=== PATIENT | male | born 1950 | race Caucasian/White ===

== ENCOUNTER 2016-06-18 04:45 | Inpatient (IN) | payer OTHER ==
[2016-06-18 05:07] VITALS: BMI 39.4
--- NOTE | 2016-06-18 06:58 | PDOC ---
History of Present Illness - General Chief Complaint: Tremors Stated Complaint: FALL Time Seen by Provider: 06/18/16 06:04 History Source: Patient, EMS Exam Limitations: No Limitations - History of Present Illness Initial Comments: 06/18/16 06:41 Patient is a [id number] with history of obesity, chronic back pain, VT, angioplasty, PPM/defib,A. fib, V. tach, CHF, IDDM, left knee orthoroscopy, bone grafts left hip, cholecystectomy, on CPAP at nights, complaining of tremors since 10:00 yesterday morning. States that he s took 2 Tylenol. Shaking went away after coughing up with 3 blankets in bed. After a few hours symptoms came back and since then he's been having hot and cold chills. This a.m. he was in bed and slipped off the edge. EMS was called. Temp at home was 99.3. States has had shaking like this before when he has an infection in his gallbadder. Denies abdominal pain, cough,chest pain, shortness of breath, PMD: Dr Erica Gomes Cardio: Dr. Brown PMHX: as above PSochx: neg cig, neg etoh, neg drug ALL: PCN. GENERAL/CONSTITUTIONAL: (+) fever or chills. No weakness. (+) weight gain.] HEAD, EYES, EARS, NOSE AND THROAT: [No change in vision. No ear pain or discharge. No sore throat.] CARDIOVASCULAR: [No chest pain (+) shortness of breath.] RESPIRATORY: [No cough, wheezing, or hemoptysis.] GASTROINTESTINAL: [No nausea, vomiting, diarrhea or constipation. No rectal bleeding.] GENITOURINARY: [No dysuria, frequency, or change in urination.] MUSCULOSKELETAL: [No joint or muscle swelling or pain. No neck or back pain.] SKIN AND BREASTS: [No rash or easy bruising.] NEUROLOGIC: [No headache, vertigo, loss of consciousness, or loss of sensation.] PSYCHIATRIC: [No depression or anxiety.] ENDOCRINE: [No increased thirst. No abnormal weight change.] HEMATOLOGIC/LYMPHATIC: [No anemia, easy bleeding, or history of blood clots.] ALLERGIC/IMMUNOLOGIC: [No hives or skin allergy. No latex allergy.] GENERAL: [The patient is awake, alert, and fully oriented, in mild distress.] HEAD: [Normal with no signs of trauma.] EYES: [Pupils equal, round and reactive to light, extraocular movements intact, sclera anicteric, conjunctiva clear.] ENT: [Ears normal, nares patent, oropharynx clear without exudates. Moist mucous membranes.] NECK: [Normal range of motion, supple without lymphadenopathy, JVD, or masses.] LUNGS: [Breath sounds equal, clear to auscultation bilaterally. No wheezes, and no crackles.] HEART: [Regular rate and rhythm, normal S1 and S2 without murmur, rub.] ABDOMEN: [Soft, nontender, normoactive bowel sounds. No guarding, no rebound. No masses, obese.] EXTREMITIES: [Normal range of motion, no edema. No clubbing or cyanosis. No cords, erythema, or tenderness.] NEUROLOGICAL: [Cranial nerves II through XII grossly intact. Normal speech, normal gait.] PSYCH: [Normal mood, normal affect.] SKIN: [Warm, Dry, normal turgor, no rashes or lesions noted.] Past History - Past Medical History Allergies/Adverse Reactions: Allergies Allergy/AdvReac Type Severity Reaction Status Date / Time Penicillins Allergy Verified 06/18/16 04:58 Home Medications: Ambulatory Orders Alprazolam [Xanax] 2 mg PO BID 09/12/12 Aspirin Coated [Ecotrin -] 81 mg PO DAILY 09/12/12 Atorvastatin Ca [Lipitor] 20 mg PO HS 09/12/12 Lisinopril [Prinivil] 10 mg PO DAILY 09/12/12 Metoprolol Succinate [Toprol XL -] 50 mg PO BID 09/12/12 Fenofibrate 134 mg PO DAILY 08/14/13 Metformin HCl [Glucophage -] 500 mg PO BID 08/14/13 Clopidogrel Bisulfate [Plavix -] 75 mg PO DAILY 10/06/15 Digoxin [Lanoxin -] 0.25 mg PO DAILY 10/06/15 Insulin (Levemir) [Levemir Vial] 36 unit SQ HS 10/06/15 Isosorbide Mononitrate [Imdur -] 30 mg PO DAILY 10/06/15 Metoprolol Succinate [Toprol XL -] 150 mg PO BID 10/06/15 Oxycodone HCl/Acetaminophen [Percocet 10-325 mg Tablet] 1 each PO BID PRN Repaglinide 2 mg PO TID 10/06/15 Rivaroxaban [Xarelto -] 20 mg PO HS 10/06/15 Levofloxacin [Levaquin] 500 mg PO DAILY #7 tablet 11/02/15 Anemia: No Asthma: No Cancer: No Cardiac Disorders: Yes (Stent/VT) CVA: No COPD: (bipap, oxygen dep) CHF: Yes Dementia: No Diabetes: Yes GI Disorders: No Disorders: No HTN: Yes Hypercholesterolemia: Yes Liver Disease: No Seizures: No Thyroid Disease: No - Surgical History Abdominal Surgery: No Appendectomy: No Cardiac Surgery: Yes Cholecystectomy: No Lung Surgery: No Neurologic Surgery: No Orthopedic Surgery: Yes (L Hip/Tibia(bone graft)) - Psycho/Social/Smoking Cessation Hx Anxiety: No Suicidal Ideation: No Smoking History: Former smoker Have you smoked in the past 12 months: No Number of Cigarettes Smoked Daily: 30 If you are a former smoker, when did you quit?: Information on smoking cessation initiated: No 'Breaking Loose' booklet given: 09/13/12 Hx Alcohol Use: No Drug/Substance Use Hx: No Substance Use Type: Alcohol, Marijuana Hx Substance Use Treatment: No *Physical Exam - Vital Signs Last Vital Signs Temp Pulse Resp BP Pulse Ox 98.2 F 94 H 16 111/80 94 L 06/18/16 04:58 06/18/16 04:58 06/18/16 04:58 06/18/16 04:58 06/18/16 04:58 ED Treatment Course - LABORATORY CBC & Chemistry Diagram: 06/18/16 07:00 06/18/16 07:00 Medical Decision Making - Medical Decision Making 06/18/16 06:58 Patient is a [id number] with history of obesity, chronic back pain, VT, angioplasty, PPM/defib,A. fib, V. tach, CHF, IDDM, left knee orthoroscopy, bone grafts left hip, cholecystectomy, on CPAP at nights, complaining of tremors since 10:00 yesterday morning. r/o fever, sepsis, will get labs, cxr, rectal temp will hold fluids for now. Endorsed to AM team pending labs and disposition *DC/Admit/Observation/Transfer Diagnosis at time of Disposition: Tremor
[2016-06-18 07:40] LABS: BASOPHIL 0.2 % (0-2.0); EOSINOPHIL 0.1 % (0-4.5); MCH 29.1 pg (25.7-33.7); MCHC 32.8 g/dl (32.0-35.9); MEAN PLT VOLUME 9.6 fl (7.5-11.1); NEUTROPHILS 93.1 % (42.8-82.8); PLATELET COUNT 133 K/MM3 (134-434); RDW 15.8 % (11.9-15.9); WHITE BLOOD COUNT 11.9 K/mm3 (4.0-10.0)
--- NOTE | 2016-06-18 07:49 | PDOC ---
ED Treatment Course - LABORATORY CBC & Chemistry Diagram: 06/18/16 07:00 06/18/16 07:00 Progress Note - Progress Note Progress Note: I have received report from SEVERO Morales regarding this patient. Pt's initial chief complaint: tremors/chills since 10 yesterday morning Pt's work up completed prior to sign out: none Pt treatment given from prior staff: none Pt plan to be completed: Awaiting labs, CXR, EKG Dispo: Pending Medical Decision Making - Medical Decision Making A/P: 66 y/o male with multiple co-morbidities c/o tremors/chills since yesterday. The patient was initially examined by SEVERO Morales. Awaiting labs, EKG, CXR, UA. 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 He admits he's had it for 5 years. CXR IMPRESSION: No acute pathology. Placed call to Dr. Erica Handy for admission Ordered bolus of [address] Mark Reeder who suggests admission to Med/surg. He was vanc and zosyn but pt is PCN allergic so will give Vanc and levaquin Still awaiting urine Pt made aware of plan for admission and he is in agreement. Influenza A&B - negative Ordered a second bolus of 500mg of IV fluids as the patient's BP remains at 70/ 50. He informs me that yesterday he was urinating very dark urine and hasn't urinated since. He is very dry. BP remains low after 2nd bolus. Ordered 1L IV fluids *DC/Admit/Observation/Transfer Diagnosis at time of Disposition: Tremor, Lactic acidosis, Fever of unknown origin, Dehydration Acute kidney failure Qualifiers: Acute renal failure type: unspecified Qualified Code(s): N17.9 - Acute kidney failure, unspecified - Discharge Dispostion Admit: Yes - Referrals
[2016-06-18 07:53] LABS: ALBUMIN 2.8 g/dl (3.4-5.0); BILIRUBIN,TOTAL 0.8 mg/dL (0.2-1.0); CALCIUM 9.1 mg/dL (8.5-10.1); TOT PROT 6.7 g/dl (6.4-8.2)
[2016-06-18 08:59] LABS: TROPONIN I 0.05 ng/ml (0.00-0.05)
[2016-06-18] MEDS ORDERED: ACETAMINOPHEN 1000 MG/100 ML VIAL (NON FORMULARY) IVPB ONE (09:01)
[2016-06-18] MEDS ORDERED: SODIUM CHLORIDE 500 ML IV STA ×2 (09:36→10:26)
[2016-06-18] MEDS ORDERED: ACETAMINOPHEN INJECTION 100 ML IVPB ONE (09:49)
[2016-06-18] MEDS ORDERED: VANCOMYCIN 1,000 MG in DEXTROSE 5%-WATER - 250 ML IVPB ONE (10:23)
[2016-06-18] MEDS ORDERED: LEVOFLOXACIN 750 MG IVPB 150 ML IVPB ONE ×2 (10:26→11:02)
[2016-06-18] MEDS ORDERED: VANCOMYCIN 1 GRAM (PRE-DOCKED) 250 ML IVPB ONE (11:02)
[2016-06-18] MEDS ORDERED: SODIUM CHLORIDE 1,000 ML IV STA (11:59)
--- NOTE | 2016-06-18 13:13 | HP ---
Admitting History and Physical - Primary Care Physician PCP: Erica Handy - Admission Chief Complaint: chills / not feeling well History of Present Illness: Patient is a [id number] with history of obesity, chronic back pain, [place], angioplasty, PPM/defib,A. fib, V. tach, CHF, IDDM, left knee orthoroscopy, bone grafts left hip, cholecystectomy, on CPAP at nights, left buttock sacral decubitus --complaining of tremors since 10:00 yesterday morning. States that he s took 2 Tylenol. Shaking went away after coughing up with 3 blankets in bed. After a few hours symptoms came back and since then he's been having hot and cold chills. This a.m. he was in bed and slipped off the edge. EMS was called. Temp at home was 99.3. States has had shaking like this before when he has an infection in his gall[place]. Denies abdominal pain, cough,chest pain, shortness of breath, PMD: Dr Erica Gomes PSochx: neg cig, neg etoh, neg drug ALL: PCN. In er - pt is afebrile but elevated lactic acid/ increased wbcs / pt did get tylenol at home Pt given fluids in er / abx Pt also in acute renal failure pt seen by me in er events noted/ chart reviewed pt comfortable but feels weak. denies cp/ sob/ abd pain. no headche / dizziness History Source: Patient Limitations to Obtaining History: No Limitations - Past Medical History Cardiovascular: Yes: AFIB, CAD (coronary stenting 02/17 @ [facility]), CHF, HTN, Hyperlipdemia, Other (defibrillator/PPM) Pulmonary: Yes: COPD, Sleep Apnea Hepatobiliary: Yes: Cholelithiasis (cholecystitis 10/07/15 managed by perc. 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 [employer] History of Recent Travel: No Home Medications - Allergies Allergies/Adverse Reactions: Allergies Allergy/AdvReac Type Severity Reaction Status Date / Time Penicillins Allergy Verified 06/18/16 04:58 - Home Medications Home Medications: Ambulatory Orders Alprazolam [Xanax] 2 mg PO BID 09/12/12 Aspirin Coated [Ecotrin -] 81 mg PO DAILY 09/12/12 Atorvastatin Ca [Lipitor] 20 mg PO HS 09/12/12 Lisinopril [Prinivil] 10 mg PO DAILY 09/12/12 Metoprolol Succinate [Toprol XL -] 50 mg PO BID 09/12/12 Fenofibrate 134 mg PO DAILY 08/14/13 Metformin HCl [Glucophage -] 500 mg PO BID 08/14/13 Clopidogrel Bisulfate [Plavix -] 75 mg PO DAILY 10/06/15 Digoxin [Lanoxin -] 0.25 mg PO DAILY 10/06/15 Insulin (Levemir) [Levemir Vial] 36 unit SQ HS 10/06/15 Isosorbide Mononitrate [Imdur -] 30 mg PO DAILY 10/06/15 Metoprolol Succinate [Toprol XL -] 150 mg PO BID 10/06/15 Oxycodone HCl/Acetaminophen [Percocet 10-325 mg Tablet] 1 each PO BID PRN Repaglinide 2 mg PO TID 10/06/15 Rivaroxaban [Xarelto -] 20 mg PO HS 10/06/15 Levofloxacin [Levaquin] 500 mg PO DAILY #7 tablet 11/02/15 Family Disease History - Family Disease History Family Disease History: Diabetes: Brother, Sister, [place]: Father ( 71 colon cancer), Other: Mother (multiple CVA) Review of Systems - Review of Systems Constitutional: reports: Chills, Loss of Appetite, Weakness. denies: Fever Eyes: reports: No Symptoms HENT: reports: No Symptoms Neck: reports: No Symptoms Cardiovascular: reports: No Symptoms Respiratory: reports: No Symptoms Gastrointestinal: reports: No Symptoms Genitourinary: reports: No Symptoms Musculoskeletal: reports: Back Pain. denies: No Symptoms Neurological: reports: No Symptoms Psychiatric: reports: No Symptoms Physical Examination Vital Signs: Vital Signs Temperature 98.2 F 06/18/16 04:58 Pulse Rate 83 06/18/16 12:34 Respiratory Rate 20 06/18/16 12:34 Blood Pressure 112/70 06/18/16 12:34 O2 Sat by Pulse Oximetry (%) 97 06/18/16 12:34 Constitutional: Yes: No Distress, Calm Eyes: Yes: Conjunctiva Clear Neck: Yes: Supple Cardiovascular: Yes: Pulse Irregular Respiratory: Yes: CTA Bilaterally Gastrointestinal: Yes: Normal Bowel Sounds, Soft Edema: No Neurological: Yes: Alert Imaging - Results Chest X-ray: Report Reviewed EKG: Report Reviewed Problem List - Problems (2) Acute kidney failure Code(s): N17.9 - ACUTE KIDNEY FAILURE, UNSPECIFIED Qualifiers: Acute renal failure type: unspecified Qualified Code(s): N17.9 - Acute kidney failure, unspecified (3) Fever of unknown origin Code(s): R50.9 - FEVER, UNSPECIFIED (4) Lactic acidosis Code(s): E87.2 - ACIDOSIS (5) Atrial fibrillation Code(s): I48.91 - UNSPECIFIED ATRIAL FIBRILLATION Qualifiers: Atrial fibrillation type: persistent Qualified Code(s): I48.1 - Persistent atrial fibrillation (6) CAD (coronary artery disease) Code(s): I25.10 - ATHSCL HEART DISEASE OF [place] CORONARY ARTERY W/O ANG PCTRS (7) ICD (implantable cardioverter-defibrillator) in place Code(s): Z95.810 - PRESENCE OF AUTOMATIC (IMPLANTABLE) CARDIAC DEFIBRILLATOR Assessment/Plan Admit to med surg Abx Monitor lytes u/s kidneys meds reviewed D/c carmina/ metformin u/a check digoxin level Vascular eval for chronic sacral decubitus- left buttock will follow
[2016-06-18] MEDS ORDERED: DEXTROSE 5%-NORMAL SALINE 1,000 ML IV SCH (13:15)
[2016-06-18] MEDS ORDERED: oxyCODONE HCL 5 MG TABLET PO PRN (13:27)
[2016-06-18 15:27] LABS: DIGOXIN LEVEL 0.4954 ng/ml (0.8-2.0); THYROID STIMULATING HORMONE 0.54 uIU/ml (0.358-3.74)
[2016-06-18] MEDS: METOPROLOL SUCCINATE 50 MG TAB.SR.24H (FP) PO SCH ×2 (15:34→22:02)
[2016-06-18] MEDS ORDERED: REPAGLINIDE 2 MG TABLET (FP) PO SCH (17:30)
[2016-06-18] MEDS: SODIUM CHLORIDE 1,000 ML IV SCH ×2 (17:34→21:50)
[2016-06-18] MEDS: INSULIN SLIDING SCALE (NOVOLOG) 1 VIAL SQ SCH ×3 (17:35→22:25)
[2016-06-18] MEDS: REPAGLINIDE 0.5 MG TABLET (FP) PO SCH (17:36)
[2016-06-18] MEDS ORDERED: PT OWN MED DRAWER 7, Y5N ONE (17:58)
[2016-06-18 19:13] LABS: URINE APPEARANCE SLCLOUDY; URINE BILIRUBIN NEGATIVE (NEGATIVE); URINE COLOR AMBER; URINE GLUCOSE (UA) NEGATIVE (NEGATIVE); URINE KETONE NEGATIVE (NEGATIVE); URINE LEUK ESTERASE NEGATIVE (NEGATIVE); URINE NITRITE NEGATIVE (NEGATIVE); URINE UROBILINOGEN 2.0 E.U/dl E.U./dl (0.2-1.0)
[2016-06-18 19:18] LABS: URINE BLOOD 2+ (NEGATIVE); URINE PROTEIN 2+ (NEGATIVE)
[2016-06-18 19:21] LABS: URINE MUCUS RARE; URINE RBC 30 /hpf (0-3); URINE WBC 1 /hpf (3-5)
[2016-06-18] MEDS: ATORVASTATIN CA 20 MG TABLET (FP) PO SCH (22:02)
[2016-06-18] MEDS: ALPRAZolam 2 MG TABLET PO PRN (22:03)
[2016-06-18] MEDS: RIVAROXABAN 20 MG TABLET PO SCH (22:03)
[2016-06-18] MEDS: INSULIN DETEMIR 100 UNITS/ML MDV SQ SCH (22:04)
[2016-06-19] MEDS: INSULIN SLIDING SCALE (NOVOLOG) 1 VIAL SQ SCH ×4 (06:51→22:33)
[2016-06-19 07:54] LABS: MCH 29.2 pg (25.7-33.7); MCHC 32.9 g/dl (32.0-35.9); MEAN CELL VOLUME 88.8 fl (80-96); PLATELET COUNT 100 K/MM3 (134-434); RDW 16.2 % (11.9-15.9); WHITE BLOOD COUNT 5.1 K/mm3 (4.0-10.0)
[2016-06-19 08:14] LABS: ALBUMIN 2.5 g/dl (3.4-5.0); CALCIUM 8.2 mg/dL (8.5-10.1); MAGNESIUM 1.9 mg/dL (1.8-2.4)
[2016-06-19 08:21] LABS: BILIRUBIN,TOTAL 0.7 mg/dL (0.2-1.0); CREATININE 1.5 mg/dL (0.7-1.3); PHOSPHOROUS 2.5 mg/dL (2.5-4.9)
--- NOTE | 2016-06-19 08:25 | PN ---
Progress Note (short form) - Note Progress Note: Subjective Patient seen and examined. Comfortable. Feels better. Passing urine. WBC coming down. Creatinine much better. Had fever yesterday. Denies chest pain or SOB. Objective Last Vital Signs Temp Pulse Resp BP Pulse Ox 98.0 F 112 H 18 153/88 94 L 06/19/16 09:00 06/19/16 09:00 06/19/16 09:00 06/19/16 09:00 06/18/16 21:00 CBC, BMP 06/19/16 06:15 06/19/16 06:15 Laboratory Results - last 24 hr 06/18/16 06/18/16 06/18/16 12:20 14:15 14:15 WBC RBC Hgb Hct MCV MCHC RDW Plt Count MPV Neutrophils % Lymphocytes % Sodium Potassium Chloride Carbon Dioxide Anion Gap BUN Creatinine Creat Clearance w eGFR POC Glucometer Random Glucose Hemoglobin A1c % 7.4 H D Lactic Acid 2.376 H* Calcium Phosphorus Magnesium Total Bilirubin AST ALT Alkaline Phosphatase B-Natriuretic Peptide Total Protein Albumin TSH 0.54 D Urine Color Urine Appearance Urine pH Ur Specific [place] Urine Protein Urine Glucose (UA) Urine Ketones Urine Blood Urine Nitrite Urine Bilirubin Urine Urobilinogen Ur Leukocyte Esterase Urine RBC Urine WBC Urine Mucus Digoxin 0.4954 L 06/18/16 06/18/16 06/18/16 17:00 17:33 21:44 WBC RBC Hgb Hct MCV MCHC RDW Plt Count MPV Neutrophils % Lymphocytes % Sodium Potassium Chloride Carbon Dioxide Anion Gap BUN Creatinine Creat Clearance w eGFR POC Glucometer 133 112 Random Glucose Hemoglobin A1c % Lactic Acid Calcium Phosphorus Magnesium Total Bilirubin AST ALT Alkaline Phosphatase B-Natriuretic Peptide Total Protein Albumin TSH Urine Color Ke[place] Urine Appearance Slcloudy Urine pH 5.0 Ur Specific [place] 1.024 Urine Protein 2+ H Urine Glucose (UA) Negative Urine Ketones Negative Urine Blood 2+ H Urine Nitrite Negative Urine Bilirubin Negative Urine Urobilinogen 2.0 e.u/dl Ur Leukocyte Esterase Negative Urine RBC 30 Urine WBC 1 Urine Mucus Rare Digoxin 06/19/16 06/19/16 06/19/16 06:15 06:15 06:21 WBC 5.1 D RBC 4.62 Hgb 13.5 Hct 41.1 MCV 88.8 MCHC 32.9 RDW 16.2 H Plt Count 100 L D MPV 10.0 Neutrophils % Y Lymphocytes % Y Sodium 137 Potassium 4.2 Chloride 103 Carbon Dioxide 22 Anion Gap 12 BUN 27 H Creatinine 1.5 H D Creat Clearance w eGFR 46.97 POC Glucometer 97 Random Glucose 100 D Hemoglobin A1c % Lactic Acid Calcium 8.2 L Phosphorus 2.5 Magnesium 1.9 Total Bilirubin 0.7 AST 57 H D ALT 35 D Alkaline Phosphatase 34 L B-Natriuretic Peptide 2456.95 H Total Protein 6.0 L Albumin 2.5 L TSH Urine Color Urine Appearance Urine pH Ur Specific [place] Urine Protein Urine Glucose (UA) Urine Ketones Urine Blood Urine Nitrite Urine Bilirubin Urine Urobilinogen Ur Leukocyte Esterase Urine RBC Urine WBC Urine Mucus Digoxin Problem List - Problems (2) Acute kidney failure Code(s): N17.9 - ACUTE KIDNEY FAILURE, UNSPECIFIED Qualifiers: Acute renal failure type: unspecified Qualified Code(s): N17.9 - Acute kidney failure, unspecified (3) Fever of unknown origin Code(s): R50.9 - FEVER, UNSPECIFIED (4) Lactic acidosis Code(s): E87.2 - ACIDOSIS (5) Atrial fibrillation Code(s): I48.91 - UNSPECIFIED ATRIAL FIBRILLATION Qualifiers: Atrial fibrillation type: persistent Qualified Code(s): I48.1 - Persistent atrial fibrillation (6) CAD (coronary artery disease) Code(s): I25.10 - ATHSCL HEART DISEASE OF [place] CORONARY ARTERY W/O ANG PCTRS (7) ICD (implantable cardioverter-defibrillator) in place Code(s): Z95.810 - PRESENCE OF AUTOMATIC (IMPLANTABLE) CARDIAC DEFIBRILLATOR Physical Exam Constitutional: Yes: No Distress, Calm Eyes: Yes: Conjunctiva Clear Neck: Yes: Supple Cardiovascular: Yes: Pulse Irregular Respiratory: Yes: CTA Bilaterally Gastrointestinal: Yes: Normal Bowel Sounds, Soft Edema: No Neurological: Yes: Alert Assessment and Plan Continue abx. Follow up cultures. Kidney function better. Decrease fluids. Repeat UA due to hematuria. If persists will need hematology evaluation. US Kidneys Will follow. Monitor blood sugar. Documentation prepared by Carie Bhakta, acting as a lpn or medical assistant for Tl Reeder MD. <Carie Bhakta - Last Filed: 06/19/16 09:49> Problem List - Problems (2) Acute kidney failure Code(s): N17.9 - ACUTE KIDNEY FAILURE, UNSPECIFIED Qualifiers: Acute renal failure type: unspecified Qualified Code(s): N17.9 - Acute kidney failure, unspecified (3) Fever of unknown origin Code(s): R50.9 - FEVER, UNSPECIFIED (4) Lactic acidosis Code(s): E87.2 - ACIDOSIS (5) Atrial fibrillation Code(s): I48.91 - UNSPECIFIED ATRIAL FIBRILLATION Qualifiers: Atrial fibrillation type: persistent Qualified Code(s): I48.1 - Persistent atrial fibrillation (6) CAD (coronary artery disease) Code(s): I25.10 - ATHSCL HEART DISEASE OF [place] CORONARY ARTERY W/O ANG PCTRS (7) ICD (implantable cardioverter-defibrillator) in place Code(s): Z95.810 - PRESENCE OF AUTOMATIC (IMPLANTABLE) CARDIAC DEFIBRILLATOR <Tl Reeder - Last Filed: 06/19/16 08:25>
[2016-06-19] MEDS ORDERED: PT OWN MED DRAWER 7, Y5N ONE ×2 (09:55→17:54)
[2016-06-19] MEDS ORDERED: FENOFIBRATE 134 MG PO SCH (10:00)
--- NOTE | 2016-06-19 10:21 | CONSULT ---
- Consultation REQUESTING PROVIDER: General Surgery - Dr. Brody Govea CONSULT REQUEST: We have been asked to surgically evaluate this patient for left buttock wound. PCP: Tl Reeder HPI: Called to brittnee 66yo male with PMHx noted below. Admitted to [facility] with working diagnosis of sepsis. Patient c/o tremors since 10:00am yesterday morning. Tried taking Tylenol at home with intermittent relief. After a few hours symptoms came back and since then he's been having hot and cold chills. He also was febrile on on admit and leukocytosis. Patient also has chronic left buttock wound. States it's been there for the past 5 years. States at least once a month he will sit on the toilet and during the bowel movement, he will feel a "pop". Followed by drainage of blood. Stops on own. Denies and feculent material draining from wound. Since admit to hospital, patient is feeling much better. Ambulates with walker when at home. Denies CP or SOB. Denies abd pain, distension, n/v/d/c, melena, hematochezia or bowel incontinence PMHx: AFIB, CAD, CHF, HTN, Hyperlipdemia, Cholelithiasis/cystitis, fatty liver, COPD, Sleep Apnea, Renal Inusuff, Depression, Chronic low back pain, IDDM, Morbid obesity, chronic left buttock wound x5 yrs, Vfib/Vtach, CHF PSHx: Coronary stenting 02/17 @ [place]. Defibrillator/PPM, Perc cholecystostomy tube 10/07/15, AICD, Arthrosocopy HOME MEDS 3 Alprazolam [Xanax] 2 mg PO BID PRN Aspirin Coated [Ecotrin -] 81 mg PO DAILY Atorvastatin Ca [Lipitor] 20 mg PO HS Lisinopril [Prinivil] 10 mg PO DAILY Metoprolol Succinate [Toprol XL -] 50 mg PO BID Fenofibrate 134 mg PO DAILY Metformin HCl [Glucophage -] 500 mg PO BID Clopidogrel Bisulfate [Plavix -] 75 mg PO DAILY Digoxin [Lanoxin -] 0.25 mg PO DAILY Insulin (Levemir) [Levemir Vial] 36 unit SQ HS Isosorbide Mononitrate [Imdur -] 30 mg PO DAILY Oxycodone HCl/Acetaminophen 1 each PO BID PRN [Percocet 10-325 mg Tablet] Repaglinide 2 mg PO TIDCM Rivaroxaban [Xarelto -] 20 mg PO HS Allergies: PCN ROS: CONSTITUTIONAL: Absent: SEE ABOVE. diaphoresis, generalized weakness, malaise, loss of appetite, weight change CARDIOVASCULAR: Absent: SEE ABOVE. syncope, irregular heart rate, lightheadedness, peripheral edema RESPIRATORY: Absent: SEE ABOVE. wheezing, stridor, hemoptysis GASTROINTESTINAL:Absent: SEE ABOVE. GENITOURINARY: Absent: SEE ABOVE. dysuria, frequency, urgency, hesitancy, flank pain, genital pain MUSCULOSKELETAL: Absent: myalgia, arthralgia, joint swelling, back pain, neck pain SKIN: Absent: rash, itching, pallor HEMATOLOGIC/IMMUNOLOGIC: Absent: easy bleeding, easy bruising, lymphadenopathy NEUROLOGIC: Absent: SEE ABOVE. headache, paresthesias, unsteady gait, seizure, mental status changes, bladder PSYCHIATRIC: Absent: anxiety, depression, suicidal or homicidal ideation, hallucinations. PE: GENERAL: Awake, alert, and fully oriented, in no acute distress. HEAD: Normal with no signs of trauma. EYES: PERRL, sclera anicteric, conjunctiva clear. NECK: Normal ROM, supple without lymphadenopathy, JVD, or masses. LUNGS: Clear to auscultation bilat anteriorly. No wheezes, and no crackles. No accessory muscle use. HEART: Regular rate and rhythm. No murmurs ABDOMEN: Soft, NT, ND, normoactive bowel sounds, no guarding, no rebound, no masses. No organomegaly. MUSCULOSKELETAL: Normal ROM at all joints. No bony deformities or tenderness. No CVA tenderness. UPPER EXTREMITIES: 2+ pulses, warm, well-perfused. No cyanosis. Cap refill <2 seconds. No peripheral edema. LOWER EXTREMITIES: 2+ pulses, warm, well-perfused. No calf tenderness. No peripheral edema. NEUROLOGICAL: Normal speech, gait not observed. PSYCH: Cooperative. Good eye contact. Appropriate mood and affect. SKIN: Warm, dry, chronic wound with signs of wound contracture to left buttock superiorly. Erythematous skin. No induration, bogginess or drainage. Wound probed and no tract identified. Last Vital Signs Temp Pulse Resp BP Pulse Ox 98.0 F 112 H 18 153/88 94 L 06/19/16 09:00 06/19/16 09:00 06/19/16 09:00 06/19/16 09:00 06/18/16 21:00 CBC, BMP 06/19/16 06:15 06/19/16 06:15 Microbiology 06/18/16 07:00 Blood - Peripheral Venous Blood Culture - Preliminary NO GROWTH AFTER 24 HOURS, INCUBATION TO CONTINUE FOR 4 DAYS. 06/18/16 07:00 Blood - Peripheral Venous Blood Culture - Preliminary NO GROWTH AFTER 24 HOURS, INCUBATION TO CONTINUE FOR 4 DAYS. 06/18/16 10:40 Nasopharyngeal Swab Influenza Types A,B Antigen ([place]ON[place]) - Final 06/18/16 10:40 Nasopharyngeal Swab - Final Problem List - Problems (1) Perirectal cellulitis Assessment/Plan: No surgical intervention at [facility] time f/u CT to r/o fistula in ano Cont medical management at this time Surgery team to follow Above plan discussed with Dr. Govea and agrees. Code(s): K61.1 - RECTAL ABSCESS (2) Morbid obesity Assessment/Plan: Tight glycemic control Code(s): E66.01 - MORBID (SEVERE) OBESITY DUE TO EXCESS CALORIES Qualifiers: Obesity type: due to excess calories Qualified Code(s): E66.01 - Morbid (severe) obesity due to excess calories Visit type - Case Type Case Type: ED Admission - Emergency Emergency Visit: Yes ED Registration Date: 06/18/16 Care time: The patient presented to the Emergency Department on the above date and was hospitalized for further evaluation of their emergent condition. - New patient This patient is new to me today: Yes Date on this admission: 06/19/16
[2016-06-19] MEDS: REPAGLINIDE 0.5 MG TABLET (FP) PO SCH ×3 (11:34→17:36)
[2016-06-19] MEDS: ASPIRIN COATED 81 MG TABLET.EC PO SCH (11:36)
[2016-06-19] MEDS: SODIUM CHLORIDE 1,000 ML IV SCH (11:37)
[2016-06-19] MEDS: ISOSORBIDE MONONITRATE 30 MG TAB.SR.24H (FP) PO SCH (11:37)
[2016-06-19] MEDS: FENOFIBRIC ACID 135 MG CAP PO SCH (11:37)
[2016-06-19] MEDS: METOPROLOL SUCCINATE 50 MG TAB.SR.24H (FP) PO SCH (11:37)
[2016-06-19] MEDS: DIGOXIN 0.25 MG TABLET (FP) PO SCH (11:38)
[2016-06-19] MEDS: LEVOFLOXACIN 250 MG IVPB 50 ML IVPB SCH (11:39)
[2016-06-19] MEDS: CLOPIDOGREL BISULFATE 75 MG TABLET (FP) PO SCH (11:39)
--- NOTE | 2016-06-19 12:07 | EKG ---
Test Reason : Blood Pressure : / mmHG Vent. Rate : 087 BPM Atrial Rate : 096 BPM P-R Int : 000 ms QRS Dur : 116 ms QT Int : 334 ms P-R-T Axes : 000 057 -66 degrees QTc Int : 401 ms ATRIAL FIBRILLATION POSSIBLE INFERIOR INFARCT (CITED ON OR BEFORE 10-MAY-2012) ABNORMAL ECG WHEN COMPARED WITH ECG OF 28-OCT-2015 16:48, COMPARED TO EKG NO SIGNIFICANT CHANGE IS FOUND Confirmed by GREGORIO SINGER MD ([id number]) on 06/19/2016 12:07:17 PM Referred By: Confirmed By:GREGORIO SINGER MD
[2016-06-19 16:54] LABS: URINE APPEARANCE CLEAR; URINE BILIRUBIN NEGATIVE (NEGATIVE); URINE COLOR LTYELLOW; URINE GLUCOSE (UA) NEGATIVE (NEGATIVE); URINE KETONE NEGATIVE (NEGATIVE); URINE LEUK ESTERASE NEGATIVE (NEGATIVE); URINE NITRITE NEGATIVE (NEGATIVE); URINE PROTEIN NEGATIVE (NEGATIVE); URINE UROBILINOGEN 2.0 E.U/dl E.U./dl (0.2-1.0)
[2016-06-19 17:12] LABS: URINE BLOOD 2+ (NEGATIVE)
[2016-06-19] MEDS: ATORVASTATIN CA 20 MG TABLET (FP) PO SCH (22:29)
[2016-06-19] MEDS: RIVAROXABAN 20 MG TABLET PO SCH (22:31)
[2016-06-19] MEDS: ALPRAZolam 2 MG TABLET PO PRN (22:32)
[2016-06-19] MEDS: INSULIN DETEMIR 100 UNITS/ML MDV SQ SCH (22:35)
[2016-06-20] MEDS: INSULIN SLIDING SCALE (NOVOLOG) 1 VIAL SQ SCH ×4 (06:54→22:35)
[2016-06-20 07:43] LABS: MCH 29.4 pg (25.7-33.7); MEAN PLT VOLUME 9.5 fl (7.5-11.1); PLATELET COUNT 104 K/MM3 (134-434); RDW 15.8 % (11.9-15.9); WHITE BLOOD COUNT 4.4 K/mm3 (4.0-10.0)
[2016-06-20 08:12] LABS: ALBUMIN 2.5 g/dl (3.4-5.0); ALK PHOS 35 U/L (45-117); ANION GAP 9 (8-16); BILIRUBIN,TOTAL 0.6 mg/dL (0.2-1.0); CALCIUM 8.5 mg/dL (8.5-10.1); CO2 27 mmol/L (21-32); CREATININE 1.2 mg/dL (0.7-1.3); GLUCOSE,RANDOM 119 mg/dL (74-106); SGOT/AST 47 U/L (15-37); SGPT/ALT 34 U/L (12-78); TOT PROT 6.1 g/dl (6.4-8.2)
[2016-06-20] MEDS: SODIUM CHLORIDE 1,000 ML IV SCH ×2 (08:54→17:09)
[2016-06-20] MEDS: FENOFIBRIC ACID 135 MG CAP PO SCH (09:52)
[2016-06-20] MEDS: CLOPIDOGREL BISULFATE 75 MG TABLET (FP) PO SCH (09:52)
[2016-06-20] MEDS: ISOSORBIDE MONONITRATE 30 MG TAB.SR.24H (FP) PO SCH (09:52)
[2016-06-20] MEDS: METOPROLOL SUCCINATE 50 MG TAB.SR.24H (FP) PO SCH (09:53)
[2016-06-20] MEDS: DIGOXIN 0.25 MG TABLET (FP) PO SCH ×2 (09:53→09:56)
[2016-06-20] MEDS: LEVOFLOXACIN 250 MG IVPB 50 ML IVPB SCH (09:53)
[2016-06-20] MEDS: ASPIRIN COATED 81 MG TABLET.EC PO SCH (09:53)
[2016-06-20] MEDS: REPAGLINIDE 0.5 MG TABLET (FP) PO SCH ×3 (09:54→17:09)
--- NOTE | 2016-06-20 11:44 | PN ---
Progress Note, Physician Chief Complaint: Events noted No distress noted CT results - Current Medication List Current Medications: Active Medications Acetaminophen (Tylenol -) 650 mg PO Q4H PRN PRN Reason: FEVER OR PAIN Alprazolam (Xanax -) 1 mg PO BID PRN PRN Reason: ANXIETY Last Admin: 06/19/16 22:32 Dose: 1 mg Aspirin (Ecotrin -) 81 mg PO DAILY [facility] Last Admin: 06/20/16 09:53 Dose: 81 mg Atorvastatin Calcium (Lipitor -) 20 mg PO HS [facility] Last Admin: 06/19/16 22:29 Dose: 20 mg Clopidogrel Bisulfate (Plavix -) 75 mg PO DAILY [facility] Last Admin: 06/20/16 09:52 Dose: 75 mg Digoxin (Lanoxin -) 0.25 mg PO DAILY [facility] Last Admin: 06/20/16 09:56 Dose: 0.25 mg Fenofibric Acid (Trilipix -) 135 mg PO DAILY [facility] Last Admin: 06/20/16 09:52 Dose: 135 mg Levofloxacin (Levaquin 250 Mg Premixed Ivpb -) 50 mls @ 50 mls/hr IVPB DAILY [facility] Last Admin: 06/20/16 09:53 Dose: 50 mls/hr Sodium Chloride (Normal Saline -) 1,000 mls @ 75 mls/hr IV ASDIR [facility] Last Admin: 06/20/16 08:54 Dose: Not Given Insulin Aspart (Novolog Vial Sliding Scale -) 0 vial SQ [facility] PRN Reason: Protocol Last Admin: 06/20/16 06:54 Dose: Not Given Insulin Detemir (Levemir Vial) 36 units SQ [facility] Last Admin: 06/19/16 22:35 Dose: 36 units Isosorbide Mononitrate (Imdur -) 30 mg PO DAILY [facility] Last Admin: 06/20/16 09:52 Dose: 30 mg Metoprolol Succinate (Toprol Xl -) 50 mg PO DAILY [facility] Last Admin: 06/20/16 09:53 Dose: 50 mg Oxycodone HCl (Roxicodone -) 10 mg PO Q6H PRN PRN Reason: PAIN Repaglinide (Prandin -) 2 mg PO TIDCM [facility] Last Admin: 06/20/16 09:54 Dose: Not Given Rivaroxaban (Xarelto -) 20 mg PO [facility] Last Admin: 06/19/16 22:31 Dose: 20 mg - Objective Vital Signs: Vital Signs Temperature 98.4 F 06/20/16 09:00 Pulse Rate 110 H 06/20/16 09:56 Respiratory Rate 18 06/20/16 09:00 Blood Pressure 140/85 06/20/16 09:00 O2 Sat by Pulse Oximetry (%) 96 06/20/16 09:00 Constitutional: Yes: No Distress Cardiovascular: Yes: Pulse Irregular Respiratory: Yes: Diminished Gastrointestinal: Yes: Normal Bowel Sounds, Soft, Abdomen, Obese. No: Distention, Tenderness Edema: No Labs: CBC, BMP 06/20/16 07:05 06/20/16 07:05 Problem List - Problems (1) Acute kidney failure Code(s): N17.9 - ACUTE KIDNEY FAILURE, UNSPECIFIED Qualifiers: Acute renal failure type: unspecified Qualified Code(s): N17.9 - Acute kidney failure, unspecified (2) Chronic systolic (congestive) heart failure Code(s): I50.22 - CHRONIC SYSTOLIC (CONGESTIVE) HEART FAILURE (3) Dehydration Code(s): E86.0 - DEHYDRATION (4) Perineal abscess Code(s): L02.215 - CUTANEOUS ABSCESS OF PERINEUM Assessment/Plan PLAN -- ID evaluation for antibiotics -- pain control -- pt has h/o chronic perineal abscess draining -- surgical eval noted -- WBC decreased -- renal failure resolved -- continue with meds
--- NOTE | 2016-06-20 11:59 | PN ---
Progress Note (short form) - Note Progress Note: No acute events since admit to hospital per RN notes. Resting in position of comfort. No complaints. CT Scan images and report reviewed. Last Vital Signs Temp Pulse Resp BP Pulse Ox 98.4 F 110 H 18 140/85 96 06/20/16 09:00 06/20/16 09:56 06/20/16 09:00 06/20/16 09:00 06/20/16 09:00 CBC, BMP 06/20/16 07:05 06/20/16 07:05 Problem List - Problems (1) Perirectal cellulitis Assessment/Plan: Patient has chronic left buttock wound that was debrided 5yrs ago. Continues to drain once a month. Wond examined yesterday with Dr. Govea. No evidence of abscess/induration. On CT, it shows a solitary droplet of air and they can't r/o developing abscess. Wound is open. No drainage. No surgical intervention. Should patient decide on having this explored elective, please have patient follow-up with Dr. Govea. Continue care per primary team. Above plan discussed with Dr. Govea and agrees. Code(s): K61.1 - RECTAL ABSCESS (2) Morbid obesity Code(s): E66.01 - MORBID (SEVERE) OBESITY DUE TO EXCESS CALORIES Qualifiers: Obesity type: due to excess calories Qualified Code(s): E66.01 - Morbid (severe) obesity due to excess calories
--- NOTE | 2016-06-20 16:53 | PN ---
Progress Note (short form) - Note Progress Note: ID Consult dictated Possible early perirectal abscess/ sepsis PCN allergy Empiric levaquin/ flagyl IV --> po Outpatient colorectal surgery evaluation
[2016-06-20] MEDS: METRONIDAZOLE 500 MG PREMIXED 100 ML IVPB SCH (17:09)
--- NOTE | 2016-06-20 21:08 | CONS ---
DATE OF CONSULTATION: 06/20/2016 HISTORY: A 66-year-old male with a history of coronary artery disease, history of chronic left buttock wound, evaluated for possible perirectal abscess/sepsis. The patient was admitted to the hospital after complaints of fever and chills. He had experiencing shaking chills as well as subjective fever and profound weakness. He had slipped from the bed onto the floor without sustaining any major trauma. He was taken by ambulance to the emergency room. His course was notable for fever of 101.6. Cultures were obtained. He was empirically treated with Levaquin for possible sepsis. Patient was noted to have a left buttock wound, which has been present for some time. He reports that for at least 5 years, he has had this sinus opening in the left buttock area, which opened from time to time. He reports on occasion he has a bowel movement and feels a popping sensation followed by bloody drainage from this area. He states that while in the hospital, there was purulent fluid draining. He was seen in consultation by Surgery. The wound was probed and apparently did not probe deeply. A CT scan was performed of the pelvic area and showed a possible early abscess. PAST MEDICAL HISTORY: Positive for obesity, obstructive sleep apnea, chronic low back pain, coronary artery disease, myocardial infarction, congestive heart failure, diabetes mellitus. PAST SURGICAL HISTORY: Status post permanent pacemaker and cholecystectomy. ALLERGIES: PENICILLIN. PATIENT REPORTS HAVING AN ALLERGIC REACTION IN CHILDHOOD. HE IS UNAWARE OF THE NATURE OF THE ALLERGY. HE HAS TOLERATED AUGMENTIN SUBSEQUENT TO THAT. MEDICATIONS: Include Tylenol, Levaquin, Xarelto, Xanax, Toprol, Lanoxin, Lipitor, Levemir, Prandin, Imdur, Ecotrin, oxycodone, Plavix. SOCIAL HISTORY: Lives at home with his significant other. Positive history of tobacco use. SYSTEMS REVIEW: Neurologic: No loss of consciousness, seizure activity, or focal weakness. Cardiac: Negative chest pain or palpations. Respiratory: Negative cough or sputum production. Gastrointestinal: Negative vomiting or diarrhea. Genitourinary: Negative for urinary tract infection. LABORATORY DATA: White blood cell count 4.4, hematocrit 39.7, platelet count 104, BUN 23, creatinine 1.2. Urinalysis: Negative. Blood and urine cultures negative. Flu swab negative. Previous culture results from an abscess from August 2013, positive for coagulation, negative staphylococcus, and group F streptococcus. PHYSICAL EXAMINATION: General: He is weak appearing, but not acutely toxic. Vital signs: Temperature 98.4, temperature max 101.6, blood pressure 120/63, pulse 100 and regular, respirations 16 per minute. HEENT: Sclerae are anicteric. Heart: S1, S2. Lungs: Clear. Abdomen: Obese, soft, nontender. Genitalia: Examination of the perirectal area there is an area of erythema and induration present in the left perianal area with what appears to be a sinus tract. There is no expressible pus or blood. No crepitus or fluctuance. IMPRESSION: 1. Possible early perirectal abscess. 2. Possible sepsis secondary to perirectal abscess. 3. PENICILLIN ALLERGY. PLAN: We will empirically treat with Levaquin and Flagyl IV, to be switched to p.o. over the next 24 to 48 hours if stable. Outpatient colorectal surgery evaluation. Thank you for the kind referral. KERRY ROBLES M.D. [id number]
[2016-06-20] MEDS: ATORVASTATIN CA 20 MG TABLET (FP) PO SCH (22:33)
[2016-06-20] MEDS: ALPRAZolam 2 MG TABLET PO PRN (22:34)
[2016-06-20] MEDS: RIVAROXABAN 20 MG TABLET PO SCH (22:35)
[2016-06-20] MEDS: INSULIN DETEMIR 100 UNITS/ML MDV SQ SCH (22:35)
[2016-06-21] MEDS: METRONIDAZOLE 500 MG PREMIXED 100 ML IVPB SCH ×3 (01:50→17:21)
[2016-06-21] MEDS: INSULIN SLIDING SCALE (NOVOLOG) 1 VIAL SQ SCH ×4 (07:09→22:06)
[2016-06-21] MEDS: REPAGLINIDE 0.5 MG TABLET (FP) PO SCH ×3 (08:09→17:30)
[2016-06-21] MEDS ORDERED: PT OWN MED DRAWER 7, Y5N ONE (10:03)
[2016-06-21] MEDS: ISOSORBIDE MONONITRATE 30 MG TAB.SR.24H (FP) PO SCH (10:07)
[2016-06-21] MEDS: METOPROLOL SUCCINATE 50 MG TAB.SR.24H (FP) PO SCH (10:08)
[2016-06-21] MEDS: CLOPIDOGREL BISULFATE 75 MG TABLET (FP) PO SCH (10:08)
[2016-06-21] MEDS: ALPRAZolam 2 MG TABLET PO PRN (10:08)
[2016-06-21] MEDS: ASPIRIN COATED 81 MG TABLET.EC PO SCH (10:08)
[2016-06-21] MEDS: FENOFIBRIC ACID 135 MG CAP PO SCH (10:08)
[2016-06-21] MEDS: DIGOXIN 0.25 MG TABLET (FP) PO SCH (10:09)
[2016-06-21] MEDS: LEVOFLOXACIN 750 MG IVPB 150 ML IVPB SCH (11:28)
[2016-06-21] MEDS ORDERED: ALPRAZolam 0.25 MG TABLET PO PRN (15:26)
[2016-06-21] MEDS: ACETAMINOPHEN 325 MG TABLET (FP) PO PRN (17:21)
[2016-06-21] MEDS: SODIUM CHLORIDE 1,000 ML IV SCH (17:22)
--- NOTE | 2016-06-21 17:40 | PN ---
Progress Note (short form) - Note Progress Note: patient seen and examined Family at bedside Patient reports had anxiety attack yesterday--wants me to renew Xanax Denies chest pain Breathing is stable Overall looks better Vital Signs Temp 97.7 F 06/21/16 16:25 Pulse 100 H 06/21/16 16:25 Resp 22 06/21/16 16:25 BP 144/81 06/21/16 16:25 Pulse Ox 97 06/21/16 09:00 Intake & Output 06/20/16 06/21/16 06/21/16 23:59 11:59 23:59 Intake Total 2000 600 300 Output Total 1800 650 400 Balance 200 -50 -100 Weight 284 lb 6 oz Intake: IV 900 Normal Saline - 1,000 ml 900 @ 75 mls/hr IV ASDIR [facility] Rx#:[id number] IVPB 250 Oral 1100 350 300 Output: Urine 1800 650 400 Void 1800 650 400 Other: Voiding Method Toilet Toilet Bowel Movement Yes Yes Weight Measurement Method Built in [facility] Active Medications Acetaminophen (Tylenol -) 650 mg PO Q4H PRN PRN Reason: FEVER OR PAIN Last Admin: 06/21/16 17:21 Dose: 650 mg Alprazolam (Xanax -) 1 mg PO BID PRN PRN Reason: ANXIETY Aspirin (Ecotrin -) 81 mg PO DAILY [facility] Last Admin: 06/21/16 10:08 Dose: 81 mg Atorvastatin Calcium (Lipitor -) 20 mg PO HS [facility] Last Admin: 06/20/16 22:33 Dose: 20 mg Clopidogrel Bisulfate (Plavix -) 75 mg PO DAILY [facility] Last Admin: 06/21/16 10:08 Dose: 75 mg Digoxin (Lanoxin -) 0.25 mg PO DAILY [facility] Last Admin: 06/21/16 10:09 Dose: 0.25 mg Fenofibric Acid (Trilipix -) 135 mg PO DAILY [facility] Last Admin: 06/21/16 10:08 Dose: 135 mg Levofloxacin (Levaquin 750 Mg Premixed Ivpb -) 150 mls @ 150 mls/hr IVPB DAILY [facility] Last Admin: 06/21/16 11:28 Dose: 150 mls/hr Metronidazole (Flagyl 500mg Premixed Ivpb -) 100 mls @ 100 mls/hr IVPB Q8H-IV [facility] Last Admin: 06/21/16 17:21 Dose: 100 mls/hr Insulin Aspart (Novolog Vial Sliding Scale -) 0 vial SQ [facility] PRN Reason: Protocol Last Admin: 06/21/16 17:22 Dose: Not Given Insulin Detemir (Levemir Vial) [address] [facility] Last Admin: 06/20/16 22:35 Dose: 36 units Isosorbide Mononitrate (Imdur -) 30 mg PO DAILY [facility] Last Admin: 06/21/16 10:07 Dose: 30 mg Metoprolol Succinate (Toprol Xl -) 50 mg PO DAILY [facility] Last Admin: 06/21/16 10:08 Dose: 50 mg Repaglinide (Prandin -) 2 mg PO TIDCM [facility] Last Admin: 06/21/16 17:30 Dose: 2 mg Rivaroxaban (Xarelto -) 20 mg PO HS [facility] Last Admin: 06/20/16 22:35 Dose: 20 mg CBC, BMP 06/20/16 07:05 06/20/16 07:05 Microbiology 06/18/16 10:40 Respiratory Virus Panel - Preliminary Nasopharyngeal Swab 06/18/16 07:00 Blood Culture - Preliminary Blood - Peripheral Venous NO GROWTH OBTAINED AFTER 72 HOURS, INCUBATION TO CONTINUE FOR 2 DAYS. 06/18/16 07:00 Blood Culture - Preliminary Blood - Peripheral Venous NO GROWTH OBTAINED AFTER 72 HOURS, INCUBATION TO CONTINUE FOR 2 DAYS. physical exam Constitutional: Yes: No Distress Cardiovascular: Yes: Pulse Irregular Respiratory: Yes: Diminished Gastrointestinal: Yes: Normal Bowel Sounds, Soft, Abdomen, Obese. No: Distention, Tenderness Edema: No Assessment/Plan ---antibiotics -- ID evaluation noted -- pain control -- pt has h/o chronic perineal abscess draining -- surgical eval noted and discussed with Dr. Govea today --- No surgery planned ---- renal failure resolved -- continue with meds ==Will follow Problem List - Problems (2) Acute kidney failure Code(s): N17.9 - ACUTE KIDNEY FAILURE, UNSPECIFIED Qualifiers: Acute renal failure type: unspecified Qualified Code(s): N17.9 - Acute kidney failure, unspecified (3) Fever of unknown origin Code(s): R50.9 - FEVER, UNSPECIFIED (4) Lactic acidosis Code(s): E87.2 - ACIDOSIS (5) Atrial fibrillation Code(s): I48.91 - UNSPECIFIED ATRIAL FIBRILLATION Qualifiers: Atrial fibrillation type: persistent Qualified Code(s): I48.1 - Persistent atrial fibrillation (6) CAD (coronary artery disease) Code(s): I25.10 - ATHSCL HEART DISEASE OF [place] CORONARY ARTERY W/O ANG PCTRS (7) ICD (implantable cardioverter-defibrillator) in place Code(s): Z95.810 - PRESENCE OF AUTOMATIC (IMPLANTABLE) CARDIAC DEFIBRILLATOR
[2016-06-21] MEDS: INSULIN DETEMIR 100 UNITS/ML MDV SQ SCH (22:05)
[2016-06-21] MEDS: ATORVASTATIN CA 20 MG TABLET (FP) PO SCH (22:06)
[2016-06-21] MEDS: RIVAROXABAN 20 MG TABLET PO SCH (22:06)
[2016-06-22] MEDS: METRONIDAZOLE 500 MG PREMIXED 100 ML IVPB SCH ×2 (01:35→09:41)
[2016-06-22] MEDS: ACETAMINOPHEN 325 MG TABLET (FP) PO PRN (06:34)
[2016-06-22] MEDS: INSULIN SLIDING SCALE (NOVOLOG) 1 VIAL SQ SCH ×2 (06:35→12:14)
[2016-06-22] MEDS ORDERED: PT OWN MED DRAWER 7, Y5N ONE (09:39)
[2016-06-22] MEDS: CLOPIDOGREL BISULFATE 75 MG TABLET (FP) PO SCH (09:40)
[2016-06-22] MEDS: ISOSORBIDE MONONITRATE 30 MG TAB.SR.24H (FP) PO SCH (09:40)
[2016-06-22] MEDS: METOPROLOL SUCCINATE 50 MG TAB.SR.24H (FP) PO SCH (09:40)
[2016-06-22] MEDS: ASPIRIN COATED 81 MG TABLET.EC PO SCH (09:40)
[2016-06-22] MEDS: FENOFIBRIC ACID 135 MG CAP PO SCH (09:40)
[2016-06-22] MEDS: REPAGLINIDE 0.5 MG TABLET (FP) PO SCH ×2 (09:41→11:00)
[2016-06-22 09:42] VITALS: PULSE 96
[2016-06-22] MEDS: DIGOXIN 0.25 MG TABLET (FP) PO SCH (09:42)
[2016-06-22] MEDS: LEVOFLOXACIN 750 MG IVPB 150 ML IVPB SCH (10:40)
--- NOTE | 2016-06-22 10:55 | DS ---
Physical Examination Vital Signs: Vital Signs Temperature 97.0 F L 06/22/16 06:00 Pulse Rate 96 H 06/22/16 09:42 Respiratory Rate 20 06/22/16 06:00 Blood Pressure 138/72 06/22/16 06:00 O2 Sat by Pulse Oximetry (%) 97 06/21/16 21:00 Constitutional: Yes: No Distress, Calm Cardiovascular: Yes: Pulse Irregular Respiratory: Yes: Diminished Gastrointestinal: Yes: Normal Bowel Sounds, Soft, Abdomen, Obese. No: Distention, Tenderness Edema: No Labs: CBC, BMP 06/20/16 07:05 06/20/16 07:05 Discharge Summary Reason For Visit: FEVER OF UNKNOWN ORGIN, SEPSIS, LACTIC ACIDOSIS Current Active Problems Acute kidney failure (Acute) Cellulitis, abdominal wall (Acute) Cholecystitis without cholelithiasis (Acute) Chronic systolic (congestive) heart failure (Acute) Dehydration (Acute) Fever of unknown origin (Acute) Lactic acidosis (Acute) Perineal abscess (Acute) Perirectal cellulitis (Acute) Tremor (Acute) Hospital Course: ER HISTORY - Admission Chief Complaint: chills / not feeling well History of Present Illness: Patient is a [id number] with history of obesity, chronic back pain, RI, angioplasty, PPM/defib,A. fib, V. tach, CHF, IDDM, left knee orthoroscopy, bone grafts left hip, cholecystectomy, on CPAP at nights, left buttock sacral decubitus --complaining of tremors since 10:00 yesterday morning. States that he s took 2 Tylenol. Shaking went away after coughing up with 3 blankets in bed. After a few hours symptoms came back and since then he's been having hot and cold chills. This a.m. he was in bed and slipped off the edge. EMS was called. Temp at home was 99.3. States has had shaking like this before when he has an infection in his gallbadder. Denies abdominal pain, cough,chest pain, shortness of breath, PMD: Dr Erica Gomes PSochx: neg cig, neg etoh, neg drug ALL: PCN. 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-- CT pelvis shows small abscess-- seen by Surgeon and ID- no surgical intervention at this time as the wound is continuously draining Renal function better and WBC decreased on IV antibiotics Stable for dc home-- he will be on PO antibiotics Condition: Good - Instructions Referrals: Brody Govea MD [Staff Physician] - Erica Handy MD [Primary Care Provider] - 2 Weeks Disposition: HOME - Home Medications Comprehensive Discharge Medication List: Ambulatory Orders Alprazolam [Xanax] 2 mg PO BID PRN 09/12/12 Aspirin Coated [Ecotrin -] 81 mg PO DAILY 09/12/12 Atorvastatin Ca [Lipitor] 20 mg PO HS 09/12/12 Lisinopril [Prinivil] 10 mg PO DAILY 09/12/12 Metoprolol Succinate [Toprol XL -] 50 mg PO BID 09/12/12 Fenofibrate 134 mg PO DAILY 08/14/13 Metformin HCl [Glucophage -] 500 mg PO BID 08/14/13 Clopidogrel Bisulfate [Plavix -] 75 mg PO DAILY 10/06/15 Digoxin [Lanoxin -] 0.25 mg PO DAILY 10/06/15 Insulin (Levemir) [Levemir Vial] 36 unit SQ HS 10/06/15 Isosorbide Mononitrate [Imdur -] 30 mg PO DAILY 10/06/15 Oxycodone HCl/Acetaminophen [Percocet 10-325 mg Tablet] 1 each PO BID PRN Repaglinide 2 mg PO TIDCM 10/06/15 Rivaroxaban [Xarelto -] 20 mg PO HS 10/06/15
[2016-06-22 11:57] VITALS: BP 140/84; TEMP 98.1
== END 2016-06-22 15:10 | disposition home or self-care (01) | DRG 872 ==
LOC: JER 04:45 → JERBED 10:24 → J8W 13:43
PROVIDERS: ADMIT Internal Medicine; ATTEND Internal Medicine
DX: A41.9 Sepsis, unspecified organism (principal); N17.9 Acute kidney failure, unspecified; E87.2 Acidosis; I50.22 Chronic systolic (congestive) heart failure; Z68.41 Body mass index [BMI] 40.0-44.9, adult; L02.215 Cutaneous abscess of perineum; I48.1 Persistent atrial fibrillation; K61.1 Rectal abscess; I25.10 Atherosclerotic heart disease of native coronary artery without angina pectoris; I25.2 Old myocardial infarction; E11.9 Type 2 diabetes mellitus without complications; E78.5 Hyperlipidemia, unspecified; J44.9 Chronic obstructive pulmonary disease, unspecified; E66.01 Morbid (severe) obesity due to excess calories; Z71.3 Dietary counseling and surveillance; I11.0 Hypertensive heart disease with heart failure; G47.39 Other sleep apnea; M54.5 Low back pain; K76.0 Fatty (change of) liver, not elsewhere classified; E86.0 Dehydration; F32.89 Other specified depressive episodes; L89.321 Pressure ulcer of left buttock, stage 1; Z79.4 Long term (current) use of insulin; Z95.810 Presence of automatic (implantable) cardiac defibrillator; Z87.891 Personal history of nicotine dependence; Z95.5 Presence of coronary angioplasty implant and graft; Z88.0 Allergy status to penicillin
CPT/HCPCS: 36415; 71020-TC; 72192-TC; 76775-TC; 80053; 80162; 81003; 81015; 82550; 82553; 83036; 83605; 83735; 83880; 84100; 84443; 84484; 85025; 87040; 87086; 87254; 87804; 93005; 93010; 97116-GP; 97161-GP; 99284-25

== ENCOUNTER 2018-05-21 03:38 | Inpatient (IN) | payer OTHER ==
--- NOTE | 2018-05-21 04:02 | PDOC ---
History of Present Illness - General Chief Complaint: Respiratory Stated Complaint: RESPIRATORY PROBLEM Time Seen by Provider: 05/21/18 03:51 History Source: Patient - History of Present Illness Initial Comments: 05/21/18 04:21 68 year old male c/o increased work of breathing for the last 3 days with b/l eye drainage. patient reports that he uses a cpap at night unable to tolerate due to persistent wheezing. Patient has past medical history OK, A. fib on xarelto, CHF, V. tach, hypertension, IDDM, pacemaker/defibrillator, herniated disks, DJD, peripheral neuropathy,. Past History - Past Medical History Allergies/Adverse Reactions: Allergies Allergy/AdvReac Type Severity Reaction Status Date / Time Penicillins Allergy Verified 05/21/18 04:08 Home Medications: Ambulatory Orders Alprazolam [Xanax] 2 mg PO BID PRN 09/12/12 Aspirin Coated [Ecotrin -] 81 mg PO DAILY 09/12/12 Atorvastatin Ca [Lipitor] 20 mg PO HS 09/12/12 Lisinopril [Prinivil] 10 mg PO DAILY 09/12/12 Fenofibrate 134 mg PO DAILY 08/14/13 metFORMIN HCL [Glucophage -] 500 mg PO BID 08/14/13 Clopidogrel Bisulfate [Plavix -] 75 mg PO DAILY 10/06/15 Insulin (Levemir) [Levemir Vial] 36 unit SQ HS 10/06/15 Isosorbide Mononitrate [Imdur -] 30 mg PO DAILY 10/06/15 Oxycodone HCl/Acetaminophen [Percocet 10-325 mg Tablet] 1 each PO BID PRN Repaglinide 2 mg PO TIDCM 10/06/15 Rivaroxaban [Xarelto -] 20 mg PO HS 10/06/15 Metoprolol Succinate [Toprol XL -] 150 mg PO DAILY 90 Days tab.sr.24h 06/22/16 Carvedilol [Coreg -] 50 mg PO BID 05/21/18 Anemia: No Asthma: No Cancer: No Cardiac Disorders: Yes (Stent/OK) CVA: No COPD: (bipap, oxygen dep) CHF: Yes Dementia: No Diabetes: Yes HTN: Yes Hypercholesterolemia: Yes Seizures: No Thyroid Disease: No - Surgical History Cardiac Surgery: Yes Orthopedic Surgery: Yes (L Hip/Tibia(bone graft)) - Suicide/Smoking/Psychosocial Hx Smoking History: Former smoker Have you smoked in the past 12 months: No Number of Cigarettes Smoked Daily: 30 If you are a former smoker, when did you quit?: 'Breaking Loose' booklet given: 09/13/12 Hx Alcohol Use: No Drug/Substance Use Hx: No Substance Use Type: Alcohol, Marijuana Hx Substance Use Treatment: No Review of Systems - Review of Systems Able to Perform ROS?: Yes Is the patient limited Slovak proficient: No HEENTM: Yes: Other (b/l eye discharge) Respiratory: Yes: Shortness of Breath, Wheezing Cardiac (ROS): No: Symptoms Reported, See HPI, Chest Pain, Edema, Irregular Heart Rate, Lightheadedness, Palpitations, Syncope, Chest Tightness, Other ABD/GI: No: Symptoms Reported, See HPI, Abdominal Distended, Abd. Pain w/ defecation, Blood Streaked Bowels, Constipated, Diarrhea, Difficulty Swallowing , Nausea, Poor Appetite, Poor Fluid Intake, Rectal Bleeding, Vomiting, Indigestion, Abdominal cramping, Tarry Stools, Other *Physical Exam - Vital Signs 05/21/18 04:33 Last Vital Signs Temp Pulse Resp BP Pulse Ox 98.8 F 84 23 H 100/51 L 98 05/21/18 03:38 05/21/18 03:38 05/21/18 03:38 05/21/18 03:38 05/21/18 03:38 - Physical Exam General Appearance: Yes: Moderate Distress HEENT: positive: Other (both eyes matted) Respiratory/Chest: positive: Decreased Breath Sounds, Wheezing Gastrointestinal/Abdominal: positive: Normal Bowel Sounds, Soft Extremity: positive: Normal Capillary Refill, Normal Inspection, Normal Range of Motion Integumentary: positive: Dry, Warm Neurologic: positive: Fully Oriented, Alert Heart Score/ECG Review - History History: Moderately suspicious - Electrocardiogram EKG: Normal - Age Age: >/= 65 - Risk Factors Risk Factors Heart Score: Yes Hx Hypercholesterolemia, Yes Hx Hypertension, Yes Hx Diabetes, Yes Hx Obesity Based on the list above the patient has:: >/=3 risk factors or Hx atherosclerotic disease - Troponin Troponin: </= normal limit - Score Heart Score - Total: 5 - ECG Intrepretation Rhythm: Regular Rhythm ED Treatment Course - LABORATORY CBC & Chemistry Diagram: 05/23/18 05:30 05/23/18 05:30 Progress Note - Progress Note Progress Note: CHF exacerbation P: Labs chest xray: congestion EKG: Afib 74 bpm Medical Decision Making - Medical Decision Making 05/21/18 06:04 patient b/p 109/51. bipap pending. patient signed out to Dr. bunn. accepted for admission *DC/Admit/Observation/Transfer Diagnosis at time of Disposition: Acute CHF Qualifiers: Heart failure type: unspecified Qualified Code(s): I50.9 - Heart failure, unspecified - Discharge Dispostion Condition at time of disposition: Fair Decision to Admit order: Yes - Referrals - Patient Instructions - Post Discharge Activity
[2018-05-21] MEDS ORDERED: ALBUTEROL SO4 2.5/IPRATROPIUM 0.5 INH SOL 3 ML VIAL.NEB. NEB ONE (04:04)
[2018-05-21] MEDS ORDERED: LEVALBUTEROL HCL 0.63 MG/3 ML VIAL.NEB. IH PRN (04:12)
[2018-05-21] MEDS ORDERED: LEVALBUTEROL HCL 0.63 MG/3 ML VIAL.NEB. IH ONE (04:15)
[2018-05-21] MEDS ORDERED: methylPREDNISolone NA SUCC 125 MG/2 ML VIAL IVPB ONE (04:17)
[2018-05-21] MEDS ORDERED: IPRATROPIUM BR 0.02% 0.5 MG/2.5 ML VIAL.NEB. NEB PRN (04:18)
--- NOTE | 2018-05-21 04:18 | PDOC ---
Attending Attestation - HPI HPI: 05/21/18 04:11 68-year-old male complaining of increasing shortness of breath and wheezing getting worse throughout the day. - Physicial Exam PE: 05/21/18 04:13 GENERAL: Awake, in moderate distress secondary to acute dyspnea HEAD: No signs of trauma EYES: ENT:clear without exudates. Moist mucosa NECK: Normal ROM, LUNGS:. Increased work of breathing with expiratory wheezing bilaterally and diminished air entry HEART: Irregularly irregular ABDOMEN: Soft, nondistended CHEST WALL: BACK: No midline tenderness. EXTREMITIES:. No erythema, or tenderness NEUROLOGICAL: Alert, SKIN: Warm, Dry 05/21/18 04:14
--- NOTE | 2018-05-21 04:20 | PDOC ---
*Physical Exam - Vital Signs Last Vital Signs Temp Pulse Resp BP Pulse Ox 98.8 F 84 23 H 100/51 L 98 05/21/18 03:38 05/21/18 03:38 05/21/18 03:38 05/21/18 03:38 05/21/18 03:38 ED Treatment Course - LABORATORY CBC & Chemistry Diagram: 05/21/18 04:50 05/21/18 04:50 Medical Decision Making - Critical Care Time Total Critical Care Time (minutes): 35 Critical Care Statement: The care of this patient involved high complexity decision making to prevent further life threatening deterioration of the patient 's condition and/or to evaluate & treat vital organ system(s) failure or risk of failure. - Medical Decision Making 05/21/18 04:20 68-year-old male with shortness of breath. Patient presents with respiratory distress and increased work of breathing. Nebulizer treatments and steroids as well as cardiac monitoring initiated. Patient seen by the advanced practice provider under my direct supervision. Ancillary testing reviewed as necessary. I agree with plan as outlined by the advanced practice provider. 05/21/18 06:05 . *DC/Admit/Observation/Transfer Diagnosis at time of Disposition: Acute CHF - Discharge Dispostion Condition at time of disposition: Fair - Referrals - Patient Instructions - Post Discharge Activity
[2018-05-21] MEDS ORDERED: methylPREDNISolone NA SUCC 125 MG/2 ML VIAL ONE (04:47)
[2018-05-21 04:59] LABS: EOS % 2.7 % (0-4.5); HEMATOCRIT 35.2 % (35.4-49); HEMOGLOBIN 10.9 GM/dL (11.7-16.9); LYMPH % 10.2 % (8-40); MCH 28.3 pg (25.7-33.7); MCHC 30.9 g/dl (32.0-35.9); MEAN CELL VOLUME 91.5 fl (80-96); MEAN PLT VOLUME 9.8 fl (7.5-11.1); MONO % 14.6 % (3.8-10.2); NEUT % 71.5 % (42.8-82.8); PLATELET COUNT 116 K/MM3 (134-434); RBC 3.85 M/mm3 (4.00-5.60); RDW 17.3 % (11.9-15.9); WHITE BLOOD COUNT 2.9 K/mm3 (4.0-10.0)
[2018-05-21 05:10] LABS: INR 1.79 (0.83-1.09); PROTHROMBIN TIME (PATIENT) 21.3 SEC (9.7-13.0)
[2018-05-21 05:15] LABS: ARTERIAL BLOOD GAS BASE EXCESS 1.1 meq/l (-2-2); ARTERIAL BLOOD GAS pH 7.35 (7.35-7.45); CARBOXYHEMOGLOBIN 1.1 gm% (0.5-2.0)
[2018-05-21 05:22] LABS: ALBUMIN 2.4 g/dl (3.4-5.0); ALK PHOS 47 U/L (45-117); ANION GAP 5 MMOL/L (8-16); BILIRUBIN,TOTAL 0.9 mg/dL (0.2-1); BLOOD UREA NITROGEN 32 mg/dL (7-18); CALCIUM 8.3 mg/dL (8.5-10.1); CHLORIDE 105 mmol/L (98-107); CO2 30 mmol/L (21-32); CREATININE 1.3 mg/dL (0.55-1.3); GLUCOSE,RANDOM 165 mg/dL (74-106); MAGNESIUM 2.4 mg/dL (1.8-2.4); POTASSIUM 4.5 mmol/L (3.5-5.1); SGOT/AST 40 U/L (15-37); SGPT/ALT 25 U/L (13-61); SODIUM 139 mmol/L (136-145); TOT PROT 7.2 g/dl (6.4-8.2)
[2018-05-21 05:27] LABS: ALLENS TEST POSITIVE
[2018-05-21] MEDS ORDERED: FUROSEMIDE 40 MG/4 ML INJECTABLE VIAL IVPUSH ONE ×2 (05:42→05:59)
--- NOTE | 2018-05-21 06:04 | HP ---
CHIEF COMPLAINT: shortness of breath PCP: Erica Gomes HISTORY OF PRESENT ILLNESS: 68yo man with mult medical problems listed below, with severe heart failure with systolic dysfunction c/o worsening shortness of breath for the past 3 days and very intolerance to exercise. Unable to exert himself. Denied any chest pain. Sleeps on one pillow. Follows with Dr. Kurtz for cardiology care. Reported that last year his ICD discharged after he developed Vtach. [employer] structure [employer] and [employer]- [facility] ER course was notable for: (1) Bipap (2) IV furosemide (3) Recent Travel: none PAST MEDICAL HISTORY:obesity, chronic back pain, 2014: moderate multivessel disease by coronary angiogram; had PCI (BRIAN) of mid RCA; PPM/defib,A. fib, V. tach, CHF, IDDM, TSERING on CPAPA, COPD? PAST SURGICAL HISTORY:left knee orthoroscopy, bone grafts left hip, cholecystectomy, rectal abscess -2016 Social History: Smoking: quit smoking may 2011 Alcohol: no Drugs: no Family History: Diabetes: Brother, Sister, CA: Father ( 71 colon cancer), Other: Mother (multiple CVA) Allergies Penicillins Allergy (Verified 05/21/18 04:08) HOME MEDICATIONS: Home Medications Medication Instructions Recorded Alprazolam [Xanax] 2 mg PO BID PRN 09/12/12 Aspirin Coated [Ecotrin -] 81 mg PO DAILY 09/12/12 Atorvastatin Ca [Lipitor] 20 mg PO HS 09/12/12 Lisinopril [Prinivil] 10 mg PO DAILY 09/12/12 Fenofibrate 134 mg PO DAILY 08/14/13 metFORMIN HCL [Glucophage -] 500 mg PO BID 08/14/13 Clopidogrel Bisulfate [Plavix -] 75 mg PO DAILY 10/06/15 Digoxin [Lanoxin -] 0.25 mg PO DAILY 10/06/15 Insulin (Levemir) [Levemir Vial] 36 unit SQ HS 10/06/15 Isosorbide Mononitrate [Imdur -] 30 mg PO DAILY 10/06/15 Oxycodone HCl/Acetaminophen 1 each PO BID PRN 10/06/15 [Percocet 10-325 mg Tablet] Repaglinide 2 mg PO TIDCM 10/06/15 Rivaroxaban [Xarelto -] 20 mg PO HS 10/06/15 Levofloxacin [Levaquin] 500 mg PO DAILY #5 tablet 06/22/16 Metoprolol Succinate [Toprol XL -] 150 mg PO DAILY 90 Days tab.sr.24h 06/22/16 metroNIDAZOLE [Flagyl -] 500 mg PO TID #15 tablet 06/22/16 REVIEW OF SYSTEMS CONSTITUTIONAL: Absent: fever, chills, diaphoresis, malaise, loss of appetite, weight change present- generalized weakness, obese HEENT: Absent: rhinorrhea, nasal congestion, throat pain, throat swelling, difficulty swallowing, mouth swelling, ear pain, eye pain, visual changes present- eye discharge CARDIOVASCULAR: Absent: chest pain, syncope, palpitations, lightheadedness, present- irregular heart rate, peripheral edema RESPIRATORY: Absent: cough, wheezing, stridor, hemoptysis present- shortness of breath, dyspnea with exertion, orthopnea, GASTROINTESTINAL: Absent: abdominal pain, abdominal distension, nausea, vomiting, diarrhea, constipation, melena, hematochezia GENITOURINARY: Absent: dysuria, frequency, urgency, hesitancy, hematuria, flank pain, genital pain MUSCULOSKELETAL: Absent: myalgia, arthralgia, joint swelling, back pain, neck pain SKIN: Absent: rash, itching, pallor HEMATOLOGIC/IMMUNOLOGIC: Absent: easy bleeding, easy bruising, lymphadenopathy, frequent infections ENDOCRINE: Absent: unexplained weight gain, unexplained weight loss, heat intolerance, cold intolerance NEUROLOGIC: Absent: headache, focal weakness or paresthesias, dizziness, unsteady gait, seizure, mental status changes, bladder or bowel incontinence PSYCHIATRIC: Absent: anxiety, depression, suicidal or homicidal ideation, hallucinations. PHYSICAL EXAMINATION Vital Signs - 24 hr 05/21/18 03:38 Temperature 98.8 F Pulse Rate 84 Respiratory 23 H Rate Blood Pressure 100/51 L O2 Sat by Pulse 98 Oximetry (%) GENERAL: Awake, alert, and fully oriented, in mild resp distress HEAD: Normal with no signs of trauma. EYES: Pupils equal, round and reactive to light, dried purulent d/c from eyes b/ l EARS, NOSE, THROAT: Ears normal, nares patent, oropharynx clear without exudates. Moist mucous membranes. NECK: Normal range of motion, supple without lymphadenopathy, JVD, or masses. LUNGS: Breath sounds equal, + crackles b/l, coarse breath sounds, in bipap HEART: Regular rate and rhythm, normal S1 and S2 without murmur, rub or gallop. ABDOMEN: Soft, nontender, obese, bs+, MUSCULOSKELETAL: Normal range of motion at all joints. No bony deformities or tenderness. No CVA tenderness. UPPER EXTREMITIES: 2+ pulses, warm, well-perfused. No cyanosis. No clubbing. No peripheral edema. LOWER EXTREMITIES: 1+ pedal edema b/l NEUROLOGICAL: Cranial nerves II-XII intact. Normal speech PSYCHIATRIC: Cooperative. Good eye contact. Appropriate mood and affect. SKIN: Warm, dry, normal turgor, no rashes or lesions noted, normal capillary refill. Laboratory Results - last 24 hr 05/21/18 05/21/18 05/21/18 04:50 04:50 04:50 WBC 2.9 L RBC 3.85 L Hgb 10.9 L Hct 35.2 L D MCV 91.5 MCH 28.3 MCHC 30.9 L RDW 17.3 H Plt Count 116 L D MPV 9.8 Absolute Neuts (auto) 2.1 Neutrophils % 71.5 Lymphocytes % 10.2 D Monocytes % 14.6 H Eosinophils % 2.7 Basophils % 1.0 D Nucleated RBC % 0 PT with INR 21.30 H INR 1.79 H Puncture Site ABG pH ABG pCO2 at Pt Temp ABG pO2 at Pt Temp ABG HCO3 ABG O2 Sat (Measured) ABG O2 Content ABG Base Excess Buzz Test Carboxyhemoglobin Methemoglobin O2 Delivery Device Oxygen Flow Rate Sodium 139 Potassium 4.5 Chloride 105 Carbon Dioxide 30 Anion Gap 5 L BUN 32 H Creatinine 1.3 Creat Clearance w eGFR 55.06 Random Glucose 165 H Lactic Acid Calcium 8.3 L Magnesium 2.4 Total Bilirubin 0.9 AST 40 H ALT 25 Alkaline Phosphatase 47 Creatine Kinase 50 Troponin I < 0.02 B-Natriuretic Peptide 2448.0 H Total Protein 7.2 Albumin 2.4 L Influenza A (Rapid) Influenza B (Rapid) 05/21/18 05/21/18 05/21/18 04:50 05:00 05:31 WBC RBC Hgb Hct MCV MCH MCHC RDW Plt Count MPV Absolute Neuts (auto) Neutrophils % Lymphocytes % Monocytes % Eosinophils % Basophils % Nucleated RBC % PT with INR INR Puncture Site Left radial ABG pH 7.35 ABG pCO2 at Pt Temp 49.0 H ABG pO2 at Pt Temp 196.0 H* ABG HCO3 26.5 H ABG O2 Sat (Measured) 99.0 H ABG O2 Content 13.2 L ABG Base Excess 1.1 Buzz Test Positive Carboxyhemoglobin 1.1 Methemoglobin 0.6 O2 Delivery Device Aerosol mask Oxygen Flow Rate 6l Sodium Potassium Chloride Carbon Dioxide Anion Gap BUN Creatinine Creat Clearance w eGFR Random Glucose Lactic Acid 1.1 Calcium Magnesium Total Bilirubin AST ALT Alkaline Phosphatase Creatine Kinase Troponin I B-Natriuretic Peptide Total Protein Albumin Influenza A (Rapid) Negative Influenza B (Rapid) Negative CXR - reviewed- pulm edema, ICD in place ekg reviewed- afib, old inferior infarct, no acute ischemic changes noted ASSESSMENT/PLAN: #CHF exacerbation - acute on chronic systolic #Afib- rate controlled #Hx CAD- grossly abnormal ekg s/p PCI of right RCA #Leukopenia - uncertain etiology #IDDM - uncontrolled #HYpotension- lactate wnl, do not suspect hypoperfusion at this time #Obesity -admit to telemetry -trend troponin -low dose lasix given hypotension -c/w Bipap -hold all antihypertensives at this time -c/w digoxin, check level -cardiology consult -c/w ASA and plavix for CAD -c/w xarelto for afib -i/o -daily weights -salt restriction -1L fluid/day restriction -c/w lipitor -insulin sliding scale -home dose levimer -diabetic/low Na diet -xanax prn for anxiety dvt ppx- xarelto Visit type - Emergency Visit Emergency Visit: Yes Care time: The patient presented to the Emergency Department on the above date and was hospitalized for further evaluation of their emergent condition. - New Patient This patient is new to me today: Yes Date on this admission: 05/21/18 - Critical Care Critical Care patient: No
[2018-05-21] MEDS ORDERED: FUROSEMIDE 40 MG/4 ML INJECTABLE VIAL ONE (06:24)
[2018-05-21] MEDS: INSULIN SLIDING SCALE (NOVOLOG) 1 VIAL SQ SCH ×4 (08:00→22:28)
--- NOTE | 2018-05-21 08:14 | PN ---
Progress Note (short form) - Note Progress Note: Pt examined in ER-- on BIPAP has SOB no chest pain Vital Signs - 24 hr 05/21/18 05/21/18 05/21/18 03:38 06:15 06:32 Temperature 98.8 F Pulse Rate 84 Pulse Rate [ 88 Right] Respiratory 23 H 22 H Rate Blood Pressure 100/51 L Blood Pressure 103/54 L [Left Arm] O2 Sat by Pulse 98 99 97 Oximetry (%) 05/21/18 08:00 Temperature Pulse Rate Pulse Rate [ 77 Right] Respiratory 22 H Rate Blood Pressure Blood Pressure 119/50 L [Left Arm] O2 Sat by Pulse 99 Oximetry (%) Current Medications Generic Name Dose Route Start Last Admin Trade Name Freq PRN Reason Stop Dose Admin Alprazolam 2 mg 05/21/18 06:30 Xanax - PO BID PRN ANXIETY Aspirin 81 mg 05/21/18 10:00 Ecotrin - PO DAILY JOHN Atorvastatin Calcium 20 mg 05/21/18 22:00 Lipitor - PO HS JOHN Clopidogrel Bisulfate 75 mg 05/21/18 10:00 Plavix - PO DAILY JOHN Digoxin 0.25 mg 05/21/18 10:00 Lanoxin - PO DAILY JOHN Insulin Aspart 1 vial 05/21/18 07:00 05/21/18 08:00 Novolog Vial Sliding Scale - SQ 4 units ACHS JOHN Administration Protocol Insulin Detemir 36 units 05/21/18 22:00 Levemir Vial SQ HS JOHN Ipratropium [place] 1 amp 05/21/18 04:18 05/21/18 06:32 Atrovent 0.02% Nebulizer - NEB 1 amp Q15M PRN Administration WHEEZING Isosorbide Mononitrate 30 mg 05/21/18 10:00 Imdur - PO DAILY JOHN Levalbuterol HCl 0.63 mg 05/21/18 04:12 Xopenex IH Q15M PRN ASTHMA Rivaroxaban 20 mg 05/21/18 22:00 Xarelto - PO HS [facility] Laboratory Results - last 24 hr 05/21/18 05/21/18 05/21/18 04:50 04:50 04:50 WBC 2.9 L RBC 3.85 L Hgb 10.9 L Hct 35.2 L D MCV 91.5 MCH 28.3 MCHC 30.9 L RDW 17.3 H Plt Count 116 L D MPV 9.8 Absolute Neuts (auto) 2.1 Neutrophils % 71.5 Lymphocytes % 10.2 D Monocytes % 14.6 H Eosinophils % 2.7 Basophils % 1.0 D Nucleated RBC % 0 PT with INR 21.30 H INR 1.79 H Puncture Site ABG pH ABG pCO2 at Pt Temp ABG pO2 at Pt Temp ABG HCO3 ABG O2 Sat (Measured) ABG O2 Content ABG Base Excess Buzz Test Carboxyhemoglobin Methemoglobin O2 Delivery Device Oxygen Flow Rate Sodium 139 Potassium 4.5 Chloride 105 Carbon Dioxide 30 Anion Gap 5 L BUN 32 H Creatinine 1.3 Creat Clearance w eGFR 55.06 POC Glucometer Random Glucose 165 H Lactic Acid Calcium 8.3 L Magnesium 2.4 Total Bilirubin 0.9 AST 40 H ALT 25 Alkaline Phosphatase 47 Creatine Kinase 50 Troponin I < 0.02 B-Natriuretic Peptide 2448.0 H Total Protein 7.2 Albumin 2.4 L Influenza A (Rapid) Influenza B (Rapid) 05/21/18 05/21/18 05/21/18 04:50 05:00 05:31 WBC RBC Hgb Hct MCV MCH MCHC RDW Plt Count MPV Absolute Neuts (auto) Neutrophils % Lymphocytes % Monocytes % Eosinophils % Basophils % Nucleated RBC % PT with INR INR Puncture Site Left radial ABG pH 7.35 ABG pCO2 at Pt Temp 49.0 H ABG pO2 at Pt Temp 196.0 H* ABG HCO3 26.5 H ABG O2 Sat (Measured) 99.0 H ABG O2 Content 13.2 L ABG Base Excess 1.1 Buzz Test Positive Carboxyhemoglobin 1.1 Methemoglobin 0.6 O2 Delivery Device Aerosol mask Oxygen Flow Rate 6l Sodium Potassium Chloride Carbon Dioxide Anion Gap BUN Creatinine Creat Clearance w eGFR POC Glucometer Random Glucose Lactic Acid 1.1 Calcium Magnesium Total Bilirubin AST ALT Alkaline Phosphatase Creatine Kinase Troponin I B-Natriuretic Peptide Total Protein Albumin Influenza A (Rapid) Negative Influenza B (Rapid) Negative 05/21/18 08:22 WBC RBC Hgb Hct MCV MCH MCHC RDW Plt Count MPV Absolute Neuts (auto) Neutrophils % Lymphocytes % Monocytes % Eosinophils % Basophils % Nucleated RBC % PT with INR INR Puncture Site ABG pH ABG pCO2 at Pt Temp ABG pO2 at Pt Temp ABG HCO3 ABG O2 Sat (Measured) ABG O2 Content ABG Base Excess Buzz Test Carboxyhemoglobin Methemoglobin O2 Delivery Device Oxygen Flow Rate Sodium Potassium Chloride Carbon Dioxide Anion Gap BUN Creatinine Creat Clearance w eGFR POC Glucometer [phone] Random Glucose Lactic Acid Calcium Magnesium Total Bilirubin AST ALT Alkaline Phosphatase Creatine Kinase Troponin I B-Natriuretic Peptide Total Protein Albumin Influenza A (Rapid) Influenza B (Rapid) S1 s2 Irregular Lungs decreased Abd- obese, NT Edema+ PLAN IV lasix BIPAP Pulmonary and cardiology eval Telemetry check i and O Problem List - Problems (1) Afib Code(s): I48.91 - UNSPECIFIED ATRIAL FIBRILLATION (2) Acute on chronic systolic (congestive) heart failure Code(s): I50.23 - ACUTE ON CHRONIC SYSTOLIC (CONGESTIVE) HEART FAILURE (3) Diabetes Code(s): E11.9 - TYPE 2 DIABETES MELLITUS WITHOUT COMPLICATIONS (4) HTN (hypertension) Code(s): I10 - ESSENTIAL (PRIMARY) HYPERTENSION (5) Hyperlipidemia Code(s): E78.5 - HYPERLIPIDEMIA, UNSPECIFIED
[2018-05-21] MEDS ORDERED: INSULIN (NOVOLOG) ASPART 100 UNITS/ML 10ML VIAL ONE ×4 (08:28→22:19)
[2018-05-21] MEDS: ASPIRIN COATED 81 MG TABLET.EC PO SCH (12:05)
[2018-05-21] MEDS: DIGOXIN 0.25 MG TABLET (FP) PO SCH ×2 (12:06→12:26)
[2018-05-21] MEDS: ISOSORBIDE MONONITRATE 30 MG TAB.SR.24H (FP) PO SCH (12:06)
[2018-05-21] MEDS: CLOPIDOGREL BISULFATE 75 MG TABLET (FP) PO SCH (12:07)
[2018-05-21 12:41] LABS: ANISOCYTOSIS 0; MACROCYTOSIS 0; PLATELET ESTIMATE DECREASED
--- NOTE | 2018-05-21 14:29 | CON.PULM ---
Consult Consult Specialty:: PULMONARY Referred by:: Dr. Handy Reason for Consultation:: shortness of breath - History of Present Illness Chief Complaint: shortness of breath History of Present Illness: 68yo male with h/o HTN, DM, atrial fibrillation, CAD s/p stent, severe LV systolic dysfunction s/p ICD who was admitted with worsening shortness of breath x 3 days. States he has been experiencing sharp stabbing pains all over chest. +nonproductive cough and wheezing. No fevers, chills or sweats. +sick contact with . Sleeps on 1 pillow and denies significant leg swelling. 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 - History Source History Provided By: Patient, Medical Record Limitations to Obtaining History: No Limitations - Past Medical History Cardio/Vascular: Yes: AFIB, [place]17 [place] [facility] [place] [facility] [place] CHF, HTN, Hyperlipdemia, Other (defibrillator/PPM) Pulmonary: Yes: COPD, Sleep Apnea Hepatobiliary: Yes: Cholelithiasis (cholecystitis 10/07/15 managed by perc. cholecystostomy), Other (fatty liver) Renal/: Yes: Renal Inusuff Psych: Yes: Depression Musculoskeletal: Yes: Chronic low back pain Endocrine: Yes: Diabetes Mellitus, Other (Morbid obesity ) - Past Surgical History Past Surgical History: Yes: AICD, Arthrosocopy, Permanent Pacemaker - Alcohol/Substance Use Hx Alcohol Use: No History of Substance Use: reports: None - Smoking History Smoking history: Former smoker Have you smoked in the past 12 months: No Aproximately how many cigarettes per day: 30 If you are a former smoker, when did you quit?: - Social History Usual Living Arrangement: With Spouse ADL: Family Assistance 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 [employer] History of Recent Travel: No Home Medications - Allergies Allergies/Adverse Reactions: Allergies Allergy/AdvReac Type Severity Reaction Status Date / Time Penicillins Allergy Verified 05/21/18 04:08 - Home Medications Home Medications: Ambulatory Orders Alprazolam [Xanax] 2 mg PO BID PRN 09/12/12 Aspirin Coated [Ecotrin -] 81 mg PO DAILY 09/12/12 Atorvastatin Ca [Lipitor] 20 mg PO HS 09/12/12 Lisinopril [Prinivil] 10 mg PO DAILY 09/12/12 Fenofibrate 134 mg PO DAILY 08/14/13 metFORMIN HCL [Glucophage -] 500 mg PO BID 08/14/13 Clopidogrel Bisulfate [Plavix -] 75 mg PO DAILY 10/06/15 Digoxin [Lanoxin -] 0.25 mg PO DAILY 10/06/15 Insulin (Levemir) [Levemir Vial] 36 unit SQ HS 10/06/15 Isosorbide Mononitrate [Imdur -] 30 mg PO DAILY 10/06/15 Oxycodone HCl/Acetaminophen [Percocet 10-325 mg Tablet] 1 each PO BID PRN Repaglinide 2 mg PO TIDCM 10/06/15 Rivaroxaban [Xarelto -] 20 mg PO HS 10/06/15 Metoprolol Succinate [Toprol XL -] 150 mg PO DAILY 90 Days tab.sr.24h 06/22/16 Family Disease History - Family Disease History Family Disease History: Diabetes: Brother, Sister, CA: Father ( 71 colon cancer), Other: Mother (multiple CVA) Review of Systems - Review of Systems Constitutional: reports: Weakness. denies: Chills, Fever Eyes: denies: Recent Change in Vision HENT: denies: Nasal Congestion, Throat Pain Neck: denies: Stiffness, Tenderness Cardiovascular: reports: Chest Pain, Shortness of Breath. denies: Edema, Palpitations Respiratory: reports: Cough, Wheezing. denies: Hemoptysis Gastrointestinal: denies: Abdominal Pain, Nausea, Vomiting Genitourinary: denies: Dysuria, Hematuria Neurological: denies: Dizziness, Headache Endocrine: denies: Unexplained Weight Loss Physical Exam Vital Sings: Vital Signs Temperature 98.8 F 05/21/18 03:38 Pulse Rate 77 05/21/18 08:00 Respiratory Rate 22 H 05/21/18 08:00 Blood Pressure 119/50 L 05/21/18 08:00 O2 Sat by Pulse Oximetry (%) 100 05/21/18 11:00 Constitutional: Yes: Calm Eyes: Yes: Conjunctiva Clear, EOM Intact HENT: Yes: Atraumatic, Normocephalic Neck: Yes: Supple, Trachea Midline Cardiovascular: Yes: Pulse Irregular Respiratory: Yes: Diminished (decreased breath sounds at the bases) ...Clubbing: No Gastrointestinal: Yes: Normal Bowel Sounds, Soft. No: Tenderness Edema: Yes (trace) Labs: CBC, BMP 05/21/18 04:50 05/21/18 04:50 ABG Results ABG pH 7.35 (7.35-7.45) 05/21/18 05:00 ABG pCO2 at Pt Temp 49.0 mmHg (35-45) H 05/21/18 05:00 ABG pO2 at Pt Temp 196.0 mmHg (80-100) H* 05/21/18 05:00 ABG HCO3 26.5 meq/L (22-26) H 05/21/18 05:00 ABG O2 Sat (Measured) 99.0 % (90-98.9) H 05/21/18 05:00 ABG O2 Content 13.2 % vol (15-22) L 05/21/18 05:00 ABG Base Excess 1.1 meq/l (-2-2) 05/21/18 05:00 Imaging - Results Chest X-ray: Report Reviewed, Image Reviewed (cardiomegaly, mild pulmonary vascular congestion) Problem List - Problems (1) Acute on chronic systolic (congestive) heart failure Code(s): I50.23 - ACUTE ON CHRONIC SYSTOLIC (CONGESTIVE) HEART FAILURE (2) Atrial fibrillation Code(s): I48.91 - UNSPECIFIED ATRIAL FIBRILLATION Qualifiers: Atrial fibrillation type: persistent Qualified Code(s): I48.1 - Persistent atrial fibrillation (3) CAD (coronary artery disease) Code(s): I25.10 - ATHSCL HEART DISEASE OF [place] CORONARY ARTERY W/O ANG PCTRS (4) ICD (implantable cardioverter-defibrillator) in place Code(s): Z95.810 - PRESENCE OF AUTOMATIC (IMPLANTABLE) CARDIAC DEFIBRILLATOR (5) Morbid obesity Code(s): E66.01 - MORBID (SEVERE) OBESITY DUE TO EXCESS CALORIES Assessment/Plan Acute on Chronic Systolic Heart Failure Atrial Fibrillation s/p PPM/ICD CAD HTN DM Hyperlipidemia r/o COPD r/o TSERING - IV lasix - monitor urine output, creatinine - daily weights - echocardiogram - consider ICD interrogation - rate control - continue anticoagulation - O2 to keep SpO2 >90% - BiPAP as needed to assist in work of breathing - inhaled bronchodilators - will need outpt PFTs, PSG Thank you for this consult Les Garcia MD
--- NOTE | 2018-05-21 16:30 | ECHO ---
Name: LORA KIMBALL Exam:Adult Echocardiogram Study Date: 05/21/2018 11:45 AM Age: 68 yrs Reason For Study: CHF Height: 71 in Weight: 270 lb BSA: 2.4 m2 MMode/2D Measurements & Calculations IVSd: 1.3 cm Ao root diam: 2.9 cm LVIDd: 5.3 cm LA dimension: 4.5 cm LVIDs: 3.7 cm LVPWd: 1.1 cm EDV(Teich): 135.7 ml LVOT diam: 2.0 cm ESV(Teich): 58.0 ml LAV (MOD-bp): 83.2 ml Doppler Measurements & Calculations MV E max mae: 120.0 cm/sec AI P1/2t: 681.8 msec MV dec time: 0.17 sec AI max mae: 120.8 cm/sec MR max mae: 389.0 cm/sec AI max P.8 mmHg MR max P.5 mmHg AI dec slope: 51.9 cm/sec2 TR max mae: 289.1 cm/sec Med Peak E' Mae: 5.0 cm/sec TR max P.5 mmHg Med E/e': 24.0 RVSP(TR): 38.5 mmHg Lat Peak E' Mae: 8.6 cm/sec Lat E/e': 14.0 RAP systole: 5.0 mmHg PI Vmax: 108.6 cm/sec Left Ventricle Normal LV size with mildly reduced global function. Ejection Fraction = 47%. Left Ventricular Filling pattern is normal for age. Right Ventricle Normal RV size and function. A pacemaker wire is seen in the RV. Atria Mild LA enlargement. Right atrial size is normal. Mitral Valve The mitral valve is grossly normal. There is trace mitral regurgitation. Tricuspid Valve The tricuspid valve is not well visualized, but is grossly normal. There is trace tricuspid regurgita tion. Aortic Valve Thickened aortic valve without stenosis. Pulmonic Valve The pulmonic valve leaflets are thin and pliable; valve motion is normal. Great Vessels The aortic root is normal size. Interpretation Summary Normal LV size with mildly reduced global function. Ejection Fraction = 47%. Left Ventricular Filling pattern is normal for age. Normal RV size and function. A pacemaker wire is seen in the RV. Mild LA enlargement Right atrial size is normal. The mitral valve is grossly normal. There is trace mitral regurgitation. The tricuspid valve is not well visualized, but is grossly normal. There is trace tricuspid regurgitation. Thickened aortic valve without stenosis. The aortic root is normal size. MD Yony Thomason 05/21/2018 04:29 PM
--- NOTE | 2018-05-21 18:11 | EKG ---
Test Reason : Blood Pressure : / mmHG Vent. Rate : 074 BPM Atrial Rate : 086 BPM P-R Int : 000 ms QRS Dur : 124 ms QT Int : 402 ms P-R-T Axes : 000 060 248 degrees QTc Int : 446 ms ATRIAL FIBRILLATION POSSIBLE INFERIOR INFARCT (CITED ON OR BEFORE 10-MAY-2012) ABNORMAL ECG Confirmed by MD VERNON, MADISON ([id number]) on 05/21/2018 6:11:21 PM Referred By: Confirmed By:MADISON JUNIOR MD
[2018-05-21] MEDS ORDERED: RIVAROXABAN 20 MG TABLET PO SCH (22:00)
[2018-05-21] MEDS ORDERED: INSULIN (LEVEMIR) 100 UNITS/ML UNITS SQ ONE (22:19)
[2018-05-21] MEDS: INSULIN (LEVEMIR) 100 UNITS/ML UNITS SQ SCH (22:27)
[2018-05-21] MEDS: RIVAROXABAN 20 MG TABLET PO SCH (22:27)
[2018-05-21] MEDS: ATORVASTATIN CA 20 MG TABLET (FP) PO SCH (22:28)
--- NOTE | 2018-05-22 01:14 | CON.CARD ---
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 Denies chest pain or leg swelling. Former long-term cigarettes (quit in ?2015). Pt believes he was shocked at least once by the defibrillator. - History Source History Provided By: Patient, Medical Record Limitations to Obtaining History: No Limitations - Past Medical History LICENSE ISSUER: Yes: Peripheral Neuropathy Cardio/Vascular: Yes: AFIB, [place] [facility] [place], HTN, Hyperlipdemia, Other (defibrillator/PPM) Pulmonary: Yes: COPD, Sleep Apnea Hepatobiliary: Yes: Cholelithiasis (cholecystitis 10/07/15 managed by perc. cholecystostomy), Other (fatty liver) Renal/: Yes: Renal Inusuff Psych: Yes: Depression Musculoskeletal: Yes: Chronic low back pain Endocrine: Yes: Diabetes Mellitus, Other (Morbid obesity ) - Past Surgical History Past Surgical History: Yes: AICD, Arthrosocopy, Permanent Pacemaker - Alcohol/Substance Use Hx Alcohol Use: No History of Substance Use: reports: None - Smoking History Smoking history: Former smoker Have you smoked in the past 12 months: No Aproximately how many cigarettes per day: 30 If you are a former smoker, when did you quit?: - Social History Usual Living Arrangement: With Spouse ADL: Family Assistance 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 [employer] History of Recent Travel: No Home Medications - Allergies Allergies/Adverse Reactions: Allergies Allergy/AdvReac Type Severity Reaction Status Date / Time Penicillins Allergy Verified 05/21/18 04:08 - Home Medications Home Medications: Ambulatory Orders Alprazolam [Xanax] 2 mg PO BID PRN 09/12/12 Aspirin Coated [Ecotrin -] 81 mg PO DAILY 09/12/12 Atorvastatin Ca [Lipitor] 20 mg PO HS 09/12/12 Lisinopril [Prinivil] 10 mg PO DAILY 09/12/12 Fenofibrate 134 mg PO DAILY 08/14/13 metFORMIN HCL [Glucophage -] 500 mg PO BID 08/14/13 Clopidogrel Bisulfate [Plavix -] 75 mg PO DAILY 10/06/15 Insulin (Levemir) [Levemir Vial] 36 unit SQ HS 10/06/15 Isosorbide Mononitrate [Imdur -] 30 mg PO DAILY 10/06/15 Oxycodone HCl/Acetaminophen [Percocet 10-325 mg Tablet] 1 each PO BID PRN Repaglinide 2 mg PO TIDCM 10/06/15 Rivaroxaban [Xarelto -] 20 mg PO HS 10/06/15 Metoprolol Succinate [Toprol XL -] 150 mg PO DAILY 90 Days tab.sr.24h 06/22/16 Carvedilol [Coreg -] 50 mg PO BID 05/21/18 Family Disease History - Family Disease History Family Disease History: Diabetes: Brother, Sister, [place]: Father ( 71 colon cancer), Other: Mother (multiple CVA) Review of Systems - Review of Systems Constitutional: reports: Weakness Eyes: reports: No Symptoms HENT: reports: No Symptoms Neck: reports: No Symptoms Cardiovascular: reports: Shortness of Breath Respiratory: reports: Exercise Intolerance, SOB Gastrointestinal: reports: Nausea Genitourinary: reports: No Symptoms Breasts: reports: No Symptoms Reported Musculoskeletal: reports: Muscle Weakness Integumentary: reports: No Symptoms Neurological: reports: Unsteady Gait, Weakness Endocrine: reports: No Symptoms Psychiatric: reports: Anxiety, Depression - Risk Factors Known Risk Factors: Yes: Age, Diabetes Mellitus, Gender, Hypercholesterolemia, Hypertension, Physical Inactivity, Smoking (former), Other (sedentary; sleep apnea) Vital Signs: Vital Signs Temperature 98.2 F 05/21/18 14:00 Pulse Rate 82 05/21/18 14:00 Respiratory Rate 20 05/21/18 14:00 Blood Pressure 94/57 L 05/21/18 14:00 O2 Sat by Pulse Oximetry (%) 98 05/22/18 01:11 Abnormal Lab Results 05/21/18 05/21/18 05/21/18 04:50 04:50 04:50 WBC 2.9 L RBC 3.85 L Hgb 10.9 L Hct 35.2 L D MCHC 30.9 L RDW 17.3 H Plt Count 116 L D Monocytes % 14.6 H Monocytes % (Manual) 13 H PT with INR 21.30 H INR 1.79 H ABG pCO2 at Pt Temp ABG pO2 at Pt Temp ABG HCO3 ABG O2 Sat (Measured) ABG O2 Content Anion Gap 5 L BUN 32 H Random Glucose 165 H Calcium 8.3 L AST 40 H B-Natriuretic Peptide 2448.0 H Albumin 2.4 L 05/21/18 05:00 WBC RBC Hgb Hct MCHC RDW Plt Count Monocytes % Monocytes % (Manual) PT with INR INR ABG pCO2 at Pt Temp 49.0 H ABG pO2 at Pt Temp 196.0 H* ABG HCO3 26.5 H ABG O2 Sat (Measured) 99.0 H ABG O2 Content 13.2 L Anion Gap BUN Random Glucose Calcium AST B-Natriuretic Peptide Albumin Constitutional: Yes: Anxious, Obese Eyes: Yes: WNL HENT: Yes: WNL Neck: Yes: WNL Respiratory: Yes: On BiPap, SOB, Tachypnea Gastrointestinal: Yes: Soft, Abdomen, Obese Renal/: No: Anuria JVD: No Carotid Bruit: No PMI: Displaced Heart Sounds: Yes: S1 (varies in intensity), S2 Murmur: Yes: Systolic Murmur, Grade 1 Musculoskeletal: Yes: Back Pain, Joint Stiffness, Muscle Weakness Extremities: Yes: Cool Edema: Yes Edema: LLE: Trace, RLE: Trace Peripheral Pulses WNL: Yes Integumentary: Yes: WNL Psychiatric: Yes: Alert, Oriented - Other Data Labs, Other Data: CBC, BMP 05/21/18 04:50 05/21/18 04:50 INR, PTT INR 1.79 (0.83-1.09) H 05/21/18 04:50 Troponin, BNP 05/21/18 04:50 Troponin I < 0.02 B-Natriuretic Peptide 2448.0 H Troponin, BNP 05/21/18 04:50 Troponin I < 0.02 B-Natriuretic Peptide 2448.0 H Abnormal Lab Results 05/21/18 05/21/18 05/21/18 04:50 04:50 04:50 WBC 2.9 L RBC 3.85 L Hgb 10.9 L Hct 35.2 L D MCHC 30.9 L RDW 17.3 H Plt Count 116 L D Monocytes % 14.6 H Monocytes % (Manual) 13 H PT with INR 21.30 H INR 1.79 H ABG pCO2 at Pt Temp ABG pO2 at Pt Temp ABG HCO3 ABG O2 Sat (Measured) ABG O2 Content Anion Gap 5 L BUN 32 H Random Glucose 165 H Calcium 8.3 L AST 40 H B-Natriuretic Peptide 2448.0 H Albumin 2.4 L 05/21/18 05:00 WBC RBC Hgb Hct MCHC RDW Plt Count Monocytes % Monocytes % (Manual) PT with INR INR ABG pCO2 at Pt Temp 49.0 H ABG pO2 at Pt Temp 196.0 H* ABG HCO3 26.5 H ABG O2 Sat (Measured) 99.0 H ABG O2 Content 13.2 L Anion Gap BUN Random Glucose Calcium AST B-Natriuretic Peptide Albumin Prior Cardiac Procedures: Cardiac Catheterization, PTCA with Stent Ejection Fraction %: LVEF > or = 40 % Imaging - Results Chest X-ray: Image Reviewed (no acute pathology) EKG: Image Reviewed (AF with controlled VR) Other: Image Reviewed (telemetry) Problem List - Problems (1) Pancytopenia Assessment/Plan: f/u with hematology Code(s): D61.818 - OTHER PANCYTOPENIA (2) Diabetes Code(s): E11.9 - TYPE 2 DIABETES MELLITUS WITHOUT COMPLICATIONS (3) HTN (hypertension) Assessment/Plan: Restart carvedilol and lisinopril when hemodynamically stable. Code(s): I10 - ESSENTIAL (PRIMARY) HYPERTENSION (4) Anxiety and depression Code(s): F41.9 - ANXIETY DISORDER, UNSPECIFIED; F32.9 - MAJOR DEPRESSIVE DISORDER, SINGLE EPISODE, UNSPECIFIED (5) Acute on chronic systolic and diastolic heart failure, NYHA class 3 Assessment/Plan: restart carvedilol (on 25 mg bid at home), lisinopril. On digoxin; would discontinue when carvedilol is restarted. On furosemide prn. BUN/Cr, electrolytes, Is and Os, daily weight. Code(s): I50.43 - ACUTE ON CHRONIC COMBINED SYSTOLIC AND DIASTOLIC HRT FAIL (6) NSVT (nonsustained ventricular tachycardia) Assessment/Plan: restart carvedilol. Maintain electrolytes WNL. F/u ICD interrogation. 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 Restart carvedilol and lisinopril (systolic/diastolic CHF). Code(s): R06.00 - DYSPNEA, UNSPECIFIED
[2018-05-22 03:57] VITALS: BMI 37.0
[2018-05-22] MEDS: ALBUTEROL SO4 2.5/IPRATROPIUM 0.5 INH SOL 3 ML VIAL.NEB. NEB PRN (04:20)
[2018-05-22] MEDS: INSULIN SLIDING SCALE (NOVOLOG) 1 VIAL SQ SCH ×4 (06:24→21:47)
[2018-05-22] MEDS: DIGOXIN 0.25 MG TABLET (FP) PO SCH (10:08)
[2018-05-22] MEDS: ISOSORBIDE MONONITRATE 30 MG TAB.SR.24H (FP) PO SCH (10:08)
[2018-05-22] MEDS: CLOPIDOGREL BISULFATE 75 MG TABLET (FP) PO SCH (10:08)
[2018-05-22] MEDS: ASPIRIN COATED 81 MG TABLET.EC PO SCH (10:09)
--- NOTE | 2018-05-22 10:50 | PN ---
Progress Note, Physician History of Present Illness: PULMONARY ALERT,LESS DYSPNEIC,ON NASAL O2 - Current Medication List Current Medications: Active Medications Albuterol/Ipratropium (Duoneb -) 1 amp NEB Q6H PRN PRN Reason: SHORTNESS OF BREATH Alprazolam (Xanax -) 2 mg PO BID PRN PRN Reason: ANXIETY Aspirin (Ecotrin -) 81 mg PO DAILY [facility] Last Admin: 05/22/18 10:09 Dose: 81 mg Atorvastatin Calcium (Lipitor -) 20 mg PO HS [facility] Last Admin: 05/21/18 22:28 Dose: 20 mg Clopidogrel Bisulfate (Plavix -) 75 mg PO DAILY [facility] Last Admin: 05/22/18 10:08 Dose: 75 mg Digoxin (Lanoxin -) 0.25 mg PO DAILY [facility] Last Admin: 05/22/18 10:08 Dose: 0.25 mg Insulin Aspart (Novolog Vial Sliding Scale -) 1 vial SQ [facility]; Protocol Last Admin: 05/22/18 06:24 Dose: 2 units Insulin Detemir (Levemir Vial) 36 units SQ [facility] Last Admin: 05/21/18 22:27 Dose: 36 units Ipratropium [place] (Atrovent 0.02% Nebulizer -) 1 amp NEB Q15M PRN PRN Reason: WHEEZING Last Admin: 05/21/18 06:32 Dose: 1 amp Isosorbide Mononitrate (Imdur -) 30 mg PO DAILY [facility] Last Admin: 05/22/18 10:08 Dose: 30 mg Levalbuterol HCl (Xopenex) 0.63 mg IH Q15M PRN PRN Reason: ASTHMA Rivaroxaban (Xarelto -) 20 mg PO DAILY@1800 [facility] Last Admin: 05/21/18 22:27 Dose: 20 mg - Objective Vital Signs: Vital Signs Temperature 98 F 05/22/18 09:34 Pulse Rate 100 H 05/22/18 10:08 Respiratory Rate 20 05/22/18 09:34 Blood Pressure 117/65 05/22/18 09:34 O2 Sat by Pulse Oximetry (%) 96 05/22/18 03:22 Constitutional: Yes: Well Nourished, Calm, Obese Eyes: Yes: WNL HENT: Yes: WNL Neck: Yes: WNL Cardiovascular: Yes: Pulse Irregular, S1, S2 Respiratory: Yes: Diminished, Rales (BIBASILAR RALES) Gastrointestinal: Yes: Normal Bowel Sounds, Soft Extremities: Yes: WNL Edema: Yes Labs: CBC, BMP 05/21/18 04:50 05/21/18 04:50 INR, PTT INR 1.79 (0.83-1.09) H 05/21/18 04:50 Assessment/Plan Problem List - Problems (1) Acute on chronic systolic (congestive) heart failure Code(s): I50.23 - ACUTE ON CHRONIC SYSTOLIC (CONGESTIVE) HEART FAILURE (2) Atrial fibrillation Code(s): I48.91 - UNSPECIFIED ATRIAL FIBRILLATION Qualifiers: Atrial fibrillation type: persistent Qualified Code(s): I48.1 - Persistent atrial fibrillation (3) CAD (coronary artery disease) Code(s): I25.10 - ATHSCL HEART DISEASE OF [place] CORONARY ARTERY W/O ANG PCTRS (4) ICD (implantable cardioverter-defibrillator) in place Code(s): Z95.810 - PRESENCE OF AUTOMATIC (IMPLANTABLE) CARDIAC DEFIBRILLATOR (5) Morbid obesity Code(s): E66.01 - MORBID (SEVERE) OBESITY DUE TO EXCESS CALORIES Assessment/Plan Acute on Chronic Systolic Heart Failure Atrial Fibrillation s/p PPM/ICD CAD HTN DM Hyperlipidemia r/o COPD r/o TSERING - IV lasix - monitor urine output, creatinine - daily weights - rate control - anticoagulation - O2 to keep SpO2 >90% - BiPAP as needed to assist in work of breathing - inhaled bronchodilators - will need outpt PFTs, PSG - chest ct low dose for lung cancer screening DR DOHERTY
--- NOTE | 2018-05-22 11:16 | PN ---
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 Denies chest pain or leg swelling. Former long-term cigarettes (quit in ?2016). - Current Medication List Current Medications: Active Medications Albuterol/Ipratropium (Duoneb -) 1 amp NEB Q6H PRN PRN Reason: SHORTNESS OF BREATH Alprazolam (Xanax -) 2 mg PO BID PRN PRN Reason: ANXIETY Aspirin (Ecotrin -) 81 mg PO DAILY [facility] Last Admin: 05/22/18 10:09 Dose: 81 mg Atorvastatin Calcium (Lipitor -) 20 mg PO [facility] Last Admin: 05/21/18 22:28 Dose: 20 mg Clopidogrel Bisulfate (Plavix -) 75 mg PO DAILY [facility] Last Admin: 05/22/18 10:08 Dose: 75 mg Digoxin (Lanoxin -) 0.25 mg PO DAILY [facility] Last Admin: 05/22/18 10:08 Dose: 0.25 mg Insulin Aspart (Novolog Vial Sliding Scale -) 1 vial SQ [facility]; Protocol Last Admin: 05/22/18 06:24 Dose: 2 units Insulin Detemir (Levemir Vial) 36 units SQ [facility] Last Admin: 05/21/18 22:27 Dose: 36 units Ipratropium [place] (Atrovent 0.02% Nebulizer -) 1 amp NEB Q15M PRN PRN Reason: WHEEZING Last Admin: 05/21/18 06:32 Dose: 1 amp Isosorbide Mononitrate (Imdur -) 30 mg PO DAILY [facility] Last Admin: 05/22/18 10:08 Dose: 30 mg Levalbuterol HCl (Xopenex) 0.63 mg IH Q15M PRN PRN Reason: ASTHMA Rivaroxaban (Xarelto -) 20 mg PO DAILY@1800 [facility] Last Admin: 05/21/18 22:27 Dose: 20 mg - Objective Vital Signs: Vital Signs Temperature 98 F 05/22/18 09:34 Pulse Rate 100 H 05/22/18 10:08 Respiratory Rate 20 05/22/18 09:34 Blood Pressure 117/65 05/22/18 09:34 O2 Sat by Pulse Oximetry (%) 96 05/22/18 03:22 Eyes: Yes: WNL, Conjunctiva Clear, EOM Intact HENT: Yes: WNL, Atraumatic, Normocephalic Neck: Yes: WNL, Supple, Trachea Midline Cardiovascular: Yes: WNL, Regular Rate and Rhythm Respiratory: Yes: WNL, Regular, CTA Bilaterally Gastrointestinal: Yes: WNL, Normal Bowel Sounds Genitourinary: Yes: WNL Musculoskeletal: Yes: WNL Extremities: Yes: WNL Edema: No Integumentary: Yes: WNL Neurological: Yes: WNL, Alert, Oriented ...Motor Strength: WNL Psychiatric: Yes: WNL Labs: CBC, BMP 05/21/18 04:50 05/21/18 04:50 INR, PTT INR 1.79 (0.83-1.09) H 05/21/18 04:50 Assessment/Plan - Problems (1) Pancytopenia Assessment/Plan: f/u with hematology Code(s): D61.818 - OTHER PANCYTOPENIA (2) Diabetes Code(s): E11.9 - TYPE 2 DIABETES MELLITUS WITHOUT COMPLICATIONS (3) HTN (hypertension) Assessment/Plan: Restart carvedilol and lisinopril when hemodynamically stable. Code(s): I10 - ESSENTIAL (PRIMARY) HYPERTENSION (4) Anxiety and depression Code(s): F41.9 - ANXIETY DISORDER, UNSPECIFIED; F32.9 - MAJOR DEPRESSIVE DISORDER, SINGLE EPISODE, UNSPECIFIED (5) Acute on chronic systolic and diastolic heart failure, NYHA class 3 Assessment/Plan: restart carvedilol (on 25 mg bid at home), lisinopril. offf digoxin; carvedilol is restarted. On furosemide prn. BUN/Cr, electrolytes, Is and Os, daily weight. Code(s): I50.43 - ACUTE ON CHRONIC COMBINED SYSTOLIC AND DIASTOLIC HRT FAIL (6) NSVT (nonsustained ventricular tachycardia) Assessment/Plan: restart carvedilol. Maintain electrolytes WNL. F/u ICD interrogation. Code(s): I47.2 - VENTRICULAR TACHYCARDIA (7) Sepsis Code(s): A41.9 - SEPSIS, UNSPECIFIED ORGANISM (8) Hyperlipidemia Assessment/Plan: on atorvastatin Code(s): E78.5 - HYPERLIPIDEMIA, UNSPECIFIED (9) Obesity Code(s): E66.9 - OBESITY, UNSPECIFIED (10) Dyspnea Assessment/Plan: bronchodilators, steroids per control director. Restart carvedilol and lisinopril (systolic/diastolic CHF). Code(s): R06.00 - DYSPNEA, UNSPECIFIED will d/c ASA and Plavix ( last stent 1991) cont Rivaroxaban
--- NOTE | 2018-05-22 11:17 | PN ---
Progress Note (short form) - Note Progress Note: Pt examined feels SOB Vital Signs - 24 hr 05/21/18 05/21/18 05/21/18 14:00 15:00 19:20 Temperature 98.2 F Pulse Rate 82 Pulse Rate [ Right] Respiratory 20 Rate Blood Pressure 94/57 L Blood Pressure [Left Arm] O2 Sat by Pulse 99 94 L Oximetry (%) 05/21/18 05/21/18 05/22/18 21:30 23:37 01:11 Temperature Pulse Rate Pulse Rate [ Right] Respiratory Rate Blood Pressure Blood Pressure [Left Arm] O2 Sat by Pulse 94 L 98 98 Oximetry (%) 05/22/18 05/22/18 05/22/18 01:30 03:22 04:13 Temperature 97.7 F 98.1 F 98.1 F Pulse Rate 86 86 Pulse Rate [ 91 H Right] Respiratory 16 20 20 Rate Blood Pressure 125/70 125/70 Blood Pressure 110/54 L [Left Arm] O2 Sat by Pulse 99 96 Oximetry (%) 05/22/18 05/22/18 05/22/18 06:00 09:34 10:08 Temperature 98.7 F 98 F Pulse Rate 90 100 H 100 H Pulse Rate [ Right] Respiratory 20 20 Rate Blood Pressure 114/73 117/65 Blood Pressure [Left Arm] O2 Sat by Pulse Oximetry (%) Current Medications Generic Name Dose Route Start Last Admin Trade Name Freq PRN Reason Stop Dose Admin Albuterol/Ipratropium 1 amp 05/21/18 14:32 Duoneb - NEB Q6H PRN SHORTNESS OF BREATH Alprazolam 2 mg 05/21/18 06:30 Xanax - PO BID PRN ANXIETY Aspirin 81 mg 05/21/18 10:00 05/22/18 10:09 Ecotrin - PO 81 mg DAILY JOHN Administration Atorvastatin Calcium 20 mg 05/21/18 22:00 05/21/18 22:28 Lipitor - PO 20 mg HS JOHN Administration Clopidogrel Bisulfate 75 mg 05/21/18 10:00 05/22/18 10:08 Plavix - PO 75 mg DAILY JOHN Administration Digoxin 0.25 mg 05/21/18 10:00 05/22/18 10:08 Lanoxin - PO 0.25 mg DAILY JOHN Administration Insulin Aspart 1 vial 05/21/18 07:00 05/22/18 06:24 Novolog Vial Sliding Scale - SQ 2 units ACHS JOHN Administration Protocol Insulin Detemir 36 units 05/21/18 22:00 05/21/18 22:27 Levemir Vial SQ 36 units HS JOHN Administration Ipratropium [place] 1 amp 05/21/18 04:18 05/21/18 06:32 Atrovent 0.02% Nebulizer - NEB 1 amp Q15M PRN Administration WHEEZING Isosorbide Mononitrate 30 mg 05/21/18 10:00 05/22/18 10:08 Imdur - PO 30 mg DAILY JOHN Administration Levalbuterol HCl 0.63 mg 05/21/18 04:12 Xopenex IH Q15M PRN ASTHMA Rivaroxaban 20 mg 05/21/18 21:45 05/21/18 22:27 Xarelto - PO 20 mg DAILY@1800 JOHN Administration Laboratory Results - last 24 hr 05/21/18 05/21/18 05/21/18 04:50 12:31 18:07 Neutrophils % (Manual) 69.1 Band Neutrophils % 1.0 Lymphocytes % (Manual) 13.4 Monocytes % (Manual) 13 H Eosinophils % (Manual) 3.1 Basophils % (Manual) 0.0 Myelocytes % (Man) 0 Promyelocytes % (Man) 0 Blast Cells % (Manual) 0 Metamyelocytes 0 Hypochromia 1+ Platelet Estimate Decreased Polychromasia 0 Poikilocytosis 0 Anisocytosis 0 Microcytosis 0 Macrocytosis 0 POC Glucometer [phone] 05/21/18 22:12 Neutrophils % (Manual) Band Neutrophils % Lymphocytes % (Manual) Monocytes % (Manual) Eosinophils % (Manual) Basophils % (Manual) Myelocytes % (Man) Promyelocytes % (Man) Blast Cells % (Manual) Metamyelocytes Hypochromia Platelet Estimate Polychromasia Poikilocytosis Anisocytosis Microcytosis Macrocytosis POC Glucometer [phone] S1 s2 Irregular Lungs decreased Abd- obese, NT Edema+ PLAN IV lasix daily add Coreg--dc Digoxin per cardiology BIPAP Pulmonary and cardiology eval noted CT chest ordered- PT eval Telemetry check i and O Problem List - Problems (1) Afib Code(s): I48.91 - UNSPECIFIED ATRIAL FIBRILLATION (2) Acute on chronic systolic (congestive) heart failure Code(s): I50.23 - ACUTE ON CHRONIC SYSTOLIC (CONGESTIVE) HEART FAILURE (3) Diabetes Code(s): E11.9 - TYPE 2 DIABETES MELLITUS WITHOUT COMPLICATIONS (4) HTN (hypertension) Code(s): I10 - ESSENTIAL (PRIMARY) HYPERTENSION (5) Hyperlipidemia Code(s): E78.5 - HYPERLIPIDEMIA, UNSPECIFIED
[2018-05-22] MEDS: FUROSEMIDE 40 MG/4 ML INJECTABLE VIAL IVPUSH SCH (13:07)
[2018-05-22] MEDS: CARVEDILOL 12.5 MG TABLET (FP) PO SCH ×2 (13:07→21:46)
[2018-05-22] MEDS: RIVAROXABAN 20 MG TABLET PO SCH (17:48)
[2018-05-22] MEDS: ATORVASTATIN CA 20 MG TABLET (FP) PO SCH (21:46)
[2018-05-22] MEDS: INSULIN (LEVEMIR) 100 UNITS/ML UNITS SQ SCH (21:47)
[2018-05-23] MEDS: INSULIN SLIDING SCALE (NOVOLOG) 1 VIAL SQ SCH ×4 (06:14→21:38)
[2018-05-23 06:17] LABS: BASO % 0.6 % (0-2.0); EOS % 2.4 % (0-4.5); HEMATOCRIT 33.9 % (35.4-49); HEMOGLOBIN 11.1 GM/dL (11.7-16.9); LYMPH % 12.4 % (8-40); MCH 29.7 pg (25.7-33.7); MCHC 32.9 g/dl (32.0-35.9); MEAN CELL VOLUME 90.5 fl (80-96); MEAN PLT VOLUME 8.8 fl (7.5-11.1); MONO % 16.9 % (3.8-10.2); NEUT % 67.7 % (42.8-82.8); PLATELET COUNT 138 K/MM3 (134-434); RBC 3.74 M/mm3 (4.00-5.60); RDW 16.4 % (11.9-15.9); WHITE BLOOD COUNT 3.6 K/mm3 (4.0-10.0)
[2018-05-23] MEDS: ALBUTEROL SO4 2.5/IPRATROPIUM 0.5 INH SOL 3 ML VIAL.NEB. NEB PRN ×4 (07:36→21:15)
[2018-05-23 08:49] LABS: ANION GAP 9 MMOL/L (8-16); BLOOD UREA NITROGEN 37 mg/dL (7-18); CALCIUM 8.4 mg/dL (8.5-10.1); CHLORIDE 100 mmol/L (98-107); CO2 28 mmol/L (21-32); CREATININE 1.3 mg/dL (0.55-1.3); GLUCOSE,RANDOM 117 mg/dL (74-106); POTASSIUM 4.2 mmol/L (3.5-5.1); SODIUM 138 mmol/L (136-145)
[2018-05-23] MEDS: CARVEDILOL 12.5 MG TABLET (FP) PO SCH ×2 (11:19→21:36)
[2018-05-23] MEDS: ISOSORBIDE MONONITRATE 30 MG TAB.SR.24H (FP) PO SCH (11:19)
[2018-05-23] MEDS: FUROSEMIDE 40 MG/4 ML INJECTABLE VIAL IVPUSH SCH (11:19)
--- NOTE | 2018-05-23 12:11 | PN ---
Progress Note (short form) - Note Progress Note: Pt examined denies chest pain has a cough - productive Vital Signs - 24 hr 05/22/18 05/22/18 05/22/18 14:07 18:00 21:00 Temperature 98 F 98 F Pulse Rate 97 H 92 H Respiratory 20 18 18 Rate Blood Pressure 137/80 119/81 O2 Sat by Pulse 95 Oximetry (%) 05/22/18 05/23/18 05/23/18 22:00 02:00 06:00 Temperature 98.2 F 98.1 F 97.8 F Pulse Rate 86 82 90 Respiratory 18 20 20 Rate Blood Pressure 98/65 120/79 110/75 O2 Sat by Pulse Oximetry (%) 05/23/18 05/23/18 05/23/18 07:35 09:00 10:00 Temperature Pulse Rate 101 H Respiratory 18 Rate Blood Pressure 159/57 L O2 Sat by Pulse 96 97 Oximetry (%) Current Medications Generic Name Dose Route Start Last Admin Trade Name Freq PRN Reason Stop Dose Admin Albuterol/Ipratropium 1 amp 05/21/18 14:32 05/23/18 11:19 Duoneb - NEB 1 amp Q6H PRN Administration SHORTNESS OF BREATH Alprazolam 2 mg 05/21/18 06:30 Xanax - PO BID PRN ANXIETY Atorvastatin Calcium 20 mg 05/21/18 22:00 05/22/18 21:46 Lipitor - PO 20 mg HS JOHN Administration Carvedilol 12.5 mg 05/22/18 11:30 05/23/18 11:19 Coreg - PO 12.5 mg BID JOHN Administration Furosemide 40 mg 05/22/18 11:30 05/23/18 11:19 Lasix Injection - IVPUSH 40 mg DAILY JOHN Administration Levofloxacin 500 mg in 100 mls @ 100 mls/hr 05/23/18 10:45 05/23/18 11:18 Levaquin 500 Mg Premixed Ivpb - IVPB 100 mls/hr DAILY JOHN Administration Protocol Insulin Aspart 1 vial 05/21/18 07:00 05/23/18 06:14 Novolog Vial Sliding Scale - SQ Not Given ACHS COUNTS INCLUDE 234 BEDS AT [facility] Protocol Insulin Detemir 36 units 05/21/18 22:00 05/22/18 21:47 Levemir Vial SQ 36 units HS JOHN Administration Ipratropium [place] 1 amp 05/21/18 04:18 05/21/18 06:32 Atrovent 0.02% Nebulizer - NEB 1 amp Q15M PRN Administration WHEEZING Isosorbide Mononitrate 30 mg 05/21/18 10:00 05/23/18 11:19 Imdur - PO 30 mg DAILY JOHN Administration Levalbuterol HCl 0.63 mg 05/21/18 04:12 Xopenex IH Q15M PRN ASTHMA Rivaroxaban 20 mg 05/21/18 21:45 05/22/18 17:48 Xarelto - PO 20 mg DAILY@1800 JOHN Administration Laboratory Results - last 24 hr 05/23/18 05/23/18 05:30 05:30 WBC 3.6 L RBC 3.74 L Hgb 11.1 L Hct 33.9 L MCV 90.5 MCH 29.7 MCHC 32.9 RDW 16.4 H Plt Count 138 MPV 8.8 D Absolute Neuts (auto) 2.4 Neutrophils % 67.7 Lymphocytes % 12.4 D Monocytes % 16.9 H Eosinophils % 2.4 Basophils % 0.6 Nucleated RBC % 0 Sodium 138 Potassium 4.2 Chloride 100 Carbon Dioxide 28 Anion Gap 9 BUN 37 H Creatinine 1.3 Creat Clearance w eGFR 55.06 Random Glucose 117 H Calcium 8.4 L S1 s2 Irregular Lungs decreased Abd- obese, NT Edema+ PLAN IV lasix daily - monitor renal function add Coreg--dc Digoxin per cardiology BIPAP Pulmonary and cardiology eval noted CT chest ordered-noted-- start iv Levaquin will need STR PT eval Problem List - Problems (1) Afib Code(s): I48.91 - UNSPECIFIED ATRIAL FIBRILLATION (2) Acute on chronic systolic (congestive) heart failure Code(s): I50.23 - ACUTE ON CHRONIC SYSTOLIC (CONGESTIVE) HEART FAILURE (3) Diabetes Code(s): E11.9 - TYPE 2 DIABETES MELLITUS WITHOUT COMPLICATIONS (4) HTN (hypertension) Code(s): I10 - ESSENTIAL (PRIMARY) HYPERTENSION (5) Hyperlipidemia Code(s): E78.5 - HYPERLIPIDEMIA, UNSPECIFIED
--- NOTE | 2018-05-23 12:50 | PN ---
Progress Note (short form) - Note Progress Note: PULMONARY Still short of breath and now with productive cough. CT chest showing RUL infiltrate, started on antibiotics. Vital Signs Period Temp Pulse Resp BP Sys/Ray Pulse Ox Last 24 Hr 97.8 F-98.2 F 82-101 18-20 98-159/57-81 95-97 Gen: NAD at rest Heart: RRR Lung: decreased breath sounds at the bases Abd: soft, nontender Ext: trace edema CBC, BMP 05/23/18 05:30 05/23/18 05:30 Active Medications Albuterol/Ipratropium (Duoneb -) 1 amp NEB Q6H PRN PRN Reason: SHORTNESS OF BREATH Last Admin: 05/23/18 11:19 Dose: 1 amp Alprazolam (Xanax -) 2 mg PO BID PRN PRN Reason: ANXIETY Atorvastatin Calcium (Lipitor -) 20 mg PO HS [facility] Last Admin: 05/22/18 21:46 Dose: 20 mg Carvedilol (Coreg -) 12.5 mg PO BID [facility] Last Admin: 05/23/18 11:19 Dose: 12.5 mg Furosemide (Lasix Injection -) 40 mg IVPUSH DAILY [facility] Last Admin: 05/23/18 11:19 Dose: 40 mg Levofloxacin (Levaquin 500 Mg Premixed Ivpb -) 500 mg in 100 mls @ 100 mls/hr IVPB DAILY [facility]; Protocol Last Admin: 05/23/18 11:18 Dose: 100 mls/hr Insulin Aspart (Novolog Vial Sliding Scale -) 1 vial SQ ACHS [facility]; Protocol Last Admin: 05/23/18 06:14 Dose: Not Given Insulin Detemir (Levemir Vial) 36 units SQ [facility] Last Admin: 05/22/18 21:47 Dose: 36 units Ipratropium [place] (Atrovent 0.02% Nebulizer -) 1 amp NEB Q15M PRN PRN Reason: WHEEZING Last Admin: 05/21/18 06:32 Dose: 1 amp Isosorbide Mononitrate (Imdur -) 30 mg PO DAILY [facility] Last Admin: 05/23/18 11:19 Dose: 30 mg Levalbuterol HCl (Xopenex) 0.63 mg IH Q15M PRN PRN Reason: ASTHMA Rivaroxaban (Xarelto -) 20 mg PO DAILY@1800 [facility] Last Admin: 05/22/18 17:48 Dose: 20 mg A/P Acute on Chronic Systolic Heart Failure Pneumonia Atrial Fibrillation s/p PPM/ICD CAD HTN DM Hyperlipidemia r/o COPD r/o TSERING - continue lasix - monitor urine output, creatinine - daily weights - rate control - continue anticoagulation - agree with antibiotics - O2 to keep SpO2 >90% - BiPAP as needed to assist in work of breathing - inhaled bronchodilators - will need outpt PFTs, PSG Problem List - Problems (1) Acute on chronic systolic (congestive) heart failure Code(s): I50.23 - ACUTE ON CHRONIC SYSTOLIC (CONGESTIVE) HEART FAILURE (2) Atrial fibrillation Code(s): I48.91 - UNSPECIFIED ATRIAL FIBRILLATION Qualifiers: Atrial fibrillation type: persistent Qualified Code(s): I48.1 - Persistent atrial fibrillation (3) CAD (coronary artery disease) Code(s): I25.10 - ATHSCL HEART DISEASE OF [place] CORONARY ARTERY W/O ANG PCTRS (4) ICD (implantable cardioverter-defibrillator) in place Code(s): Z95.810 - PRESENCE OF AUTOMATIC (IMPLANTABLE) CARDIAC DEFIBRILLATOR (5) Morbid obesity Code(s): E66.01 - MORBID (SEVERE) OBESITY DUE TO EXCESS CALORIES
--- NOTE | 2018-05-23 16:26 | PN ---
Progress Note, Physician Chief Complaint: Pt A&Ox3; weak; no chest pain or dyspnea. 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 Denies chest pain or leg swelling. Former long-term cigarettes (quit in ?2016). Pt believes he was shocked at least once by the defibrillator. - Current Medication List Current Medications: Active Medications Albuterol/Ipratropium (Duoneb -) 1 amp NEB Q6H PRN PRN Reason: SHORTNESS OF BREATH Last Admin: 05/23/18 11:19 Dose: 1 amp Alprazolam (Xanax -) 2 mg PO BID PRN PRN Reason: ANXIETY Atorvastatin Calcium (Lipitor -) 20 mg PO HS [facility] Last Admin: 05/22/18 21:46 Dose: 20 mg Carvedilol (Coreg -) 12.5 mg PO BID [facility] Last Admin: 05/23/18 11:19 Dose: 12.5 mg Furosemide (Lasix Injection -) 40 mg IVPUSH DAILY [facility] Last Admin: 05/23/18 11:19 Dose: 40 mg Levofloxacin (Levaquin 500 Mg Premixed Ivpb -) 500 mg in 100 mls @ 100 mls/hr IVPB DAILY [facility]; Protocol Last Admin: 05/23/18 11:18 Dose: 100 mls/hr Insulin Aspart (Novolog Vial Sliding Scale -) 1 vial SQ ACHS [facility]; Protocol Last Admin: 05/23/18 14:49 Dose: Not Given Insulin Detemir (Levemir Vial) 36 units SQ HS [facility] Last Admin: 05/22/18 21:47 Dose: 36 units Ipratropium [place] (Atrovent 0.02% Nebulizer -) 1 amp NEB Q15M PRN PRN Reason: WHEEZING Last Admin: 05/21/18 06:32 Dose: 1 amp Isosorbide Mononitrate (Imdur -) 30 mg PO DAILY [facility] Last Admin: 05/23/18 11:19 Dose: 30 mg Levalbuterol HCl (Xopenex) 0.63 mg IH Q15M PRN PRN Reason: ASTHMA Rivaroxaban (Xarelto -) 20 mg PO DAILY@1800 [facility] Last Admin: 05/22/18 17:48 Dose: 20 mg - Objective Vital Signs: Vital Signs Temperature 98.9 F 05/23/18 14:00 Pulse Rate 90 05/23/18 14:00 Respiratory Rate 20 05/23/18 14:00 Blood Pressure 111/64 05/23/18 14:00 O2 Sat by Pulse Oximetry (%) 97 05/23/18 09:00 Constitutional: Yes: Anxious, Obese Eyes: Yes: WNL HENT: Yes: WNL Neck: Yes: WNL Cardiovascular: Yes: S1 (varies in intensity), S2 Respiratory: Yes: Diminished Gastrointestinal: Yes: Soft, Abdomen, Obese ...Rectal Exam: Yes: Deferred Genitourinary: No: Anuria Breast(s): Yes: WNL Musculoskeletal: Yes: Back Pain, Joint Stiffness, Muscle Weakness Extremities: Yes: Cool Edema: No Peripheral Pulses WNL: Yes Integumentary: Yes: WNL Neurological: Yes: Alert, Oriented, Weakness Psychiatric: Yes: Other (anxeity/depression) Labs: CBC, BMP 05/23/18 05:30 05/23/18 05:30 INR, PTT INR 1.79 (0.83-1.09) H 05/21/18 04:50 Abnormal Lab Results 05/25/18 05/25/18 05:30 05:30 RBC 3.84 L Hgb 11.4 L Hct 34.8 L RDW 16.4 H Plt Count 127 L Monocytes % 13.0 H Carbon Dioxide 33 H Anion Gap 7 L BUN 46 H Creatinine 1.4 H Calcium 8.4 L Alkaline Phosphatase 44 L Albumin 2.4 L - ....Imaging Chest X-ray: Image Reviewed Cat Scan: Image Reviewed Problem List - Problems (1) Pancytopenia Assessment/Plan: f/u with hematology On DOAC for anticoagulation (AF); antiplatelets discontinued. Code(s): D61.818 - OTHER PANCYTOPENIA (2) Diabetes Assessment/Plan: lisinopril started (systolic CHF; DM--renal protection). Code(s): E11.9 - TYPE 2 DIABETES MELLITUS WITHOUT COMPLICATIONS (3) HTN (hypertension) Assessment/Plan: Restarted carvedilol and lisinopril. Code(s): I10 - ESSENTIAL (PRIMARY) HYPERTENSION (4) Anxiety and depression Code(s): F41.9 - ANXIETY DISORDER, UNSPECIFIED; F32.9 - MAJOR DEPRESSIVE DISORDER, SINGLE EPISODE, UNSPECIFIED (5) Acute on chronic systolic and diastolic heart failure, NYHA class 3 Assessment/Plan: restart carvedilol (on 25 mg bid at home), lisinopril restarted. Digoxin discontinued. On furosemide. BUN/Cr, electrolytes, Is and Os, daily weight. Code(s): I50.43 - ACUTE ON CHRONIC COMBINED SYSTOLIC AND DIASTOLIC HRT FAIL (6) NSVT (nonsustained ventricular tachycardia) Assessment/Plan: restarted carvedilol and lisinopril. Maintain electrolytes WNL. F/u ICD interrogation. Code(s): I47.2 - VENTRICULAR TACHYCARDIA (7) Sepsis Code(s): A41.9 - SEPSIS, UNSPECIFIED ORGANISM (8) Hyperlipidemia Assessment/Plan: on atorvastatin Code(s): E78.5 - HYPERLIPIDEMIA, UNSPECIFIED (9) Obesity Assessment/Plan: diet modification; portion control; increase exercise. Code(s): E66.9 - OBESITY, UNSPECIFIED (10) Dyspnea Assessment/Plan: Acute/chronic systolic and diastolic CHF. PNA bronchodilators, steroids per data analytics specialist. Restarted carvedilol and lisinopril; on furosemide (systolic/diastolic CHF). Code(s): R06.00 - DYSPNEA, UNSPECIFIED (11) Sedentary lifestyle Assessment/Plan: Pt has been sedentary for years, with consequent weight gain, weakness, exertional fatigue. ?Depression. Physical therapy, motivation to start regular exercise will be crucial. Code(s): Z91.89 - OTH PERSONAL RISK FACTORS, NOT ELSEWHERE CLASSIFIED
[2018-05-23] MEDS ORDERED: LISINOPRIL 5 MG TABLET (FP) PO ONE (16:28)
[2018-05-23] MEDS: RIVAROXABAN 20 MG TABLET PO SCH (17:34)
[2018-05-23] MEDS: ATORVASTATIN CA 20 MG TABLET (FP) PO SCH (21:36)
[2018-05-23] MEDS: ALPRAZolam 2 MG TABLET PO PRN (21:36)
[2018-05-23] MEDS: INSULIN (LEVEMIR) 100 UNITS/ML UNITS SQ SCH (21:40)
[2018-05-24] MEDS: INSULIN SLIDING SCALE (NOVOLOG) 1 VIAL SQ SCH ×4 (06:50→22:39)
[2018-05-24] MEDS: ALBUTEROL SO4 2.5/IPRATROPIUM 0.5 INH SOL 3 ML VIAL.NEB. NEB PRN (08:44)
[2018-05-24] MEDS: CARVEDILOL 12.5 MG TABLET (FP) PO SCH ×2 (10:24→21:53)
[2018-05-24] MEDS: ISOSORBIDE MONONITRATE 30 MG TAB.SR.24H (FP) PO SCH (10:24)
[2018-05-24] MEDS: LISINOPRIL 5 MG TABLET (FP) PO SCH (10:24)
[2018-05-24] MEDS: FUROSEMIDE 40 MG/4 ML INJECTABLE VIAL IVPUSH SCH (10:24)
--- NOTE | 2018-05-24 11:31 | PN ---
Progress Note, Physician History of Present Illness: pulmonary alert,feeling better,less dyspneic - Current Medication List Current Medications: Active Medications Albuterol/Ipratropium (Duoneb -) 1 amp NEB Q6H PRN PRN Reason: SHORTNESS OF BREATH Last Admin: 05/24/18 08:44 Dose: 1 amp Alprazolam (Xanax -) 2 mg PO BID PRN PRN Reason: ANXIETY Last Admin: 05/23/18 21:36 Dose: 2 mg Atorvastatin Calcium (Lipitor -) 20 mg PO HS [facility] Last Admin: 05/23/18 21:36 Dose: 20 mg Carvedilol (Coreg -) 12.5 mg PO BID [facility] Last Admin: 05/24/18 10:24 Dose: 12.5 mg Furosemide (Lasix Injection -) 40 mg IVPUSH DAILY [facility] Last Admin: 05/24/18 10:24 Dose: 40 mg Levofloxacin (Levaquin 500 Mg Premixed Ivpb -) 500 mg in 100 mls @ 100 mls/hr IVPB DAILY [facility]; Protocol Last Admin: 05/24/18 10:24 Dose: 100 mls/hr Insulin Aspart (Novolog Vial Sliding Scale -) 1 vial SQ ACHS [facility]; Protocol Last Admin: 05/24/18 06:50 Dose: Not Given Insulin Detemir (Levemir Vial) 36 units SQ HS [facility] Last Admin: 05/23/18 21:40 Dose: 36 units Ipratropium [place] (Atrovent 0.02% Nebulizer -) 1 amp NEB Q15M PRN PRN Reason: WHEEZING Last Admin: 05/21/18 06:32 Dose: 1 amp Isosorbide Mononitrate (Imdur -) 30 mg PO DAILY [facility] Last Admin: 05/24/18 10:24 Dose: 30 mg Levalbuterol HCl (Xopenex) 0.63 mg IH Q15M PRN PRN Reason: ASTHMA Lisinopril (Prinivil) 2.5 mg PO DAILY [facility] Last Admin: 05/24/18 10:24 Dose: 2.5 mg Rivaroxaban (Xarelto -) 20 mg PO DAILY@1800 [facility] Last Admin: 05/23/18 17:34 Dose: 20 mg - Objective Vital Signs: Vital Signs Temperature 98.4 F 05/24/18 09:17 Pulse Rate 78 05/24/18 10:27 Respiratory Rate 20 05/24/18 10:27 Blood Pressure 104/60 05/24/18 10:27 O2 Sat by Pulse Oximetry (%) 96 05/24/18 09:00 Constitutional: Yes: Well Nourished, No Distress, Calm Eyes: Yes: WNL HENT: Yes: WNL Neck: Yes: WNL Cardiovascular: Yes: Pulse Irregular, S1, S2 Respiratory: Yes: Rales (bibasilar rales) Gastrointestinal: Yes: Normal Bowel Sounds, Soft Extremities: Yes: WNL Edema: Yes Labs: CBC, BMP Assessment/Plan Problem List - Problems (1) Acute on chronic systolic (congestive) heart failure Code(s): I50.23 - ACUTE ON CHRONIC SYSTOLIC (CONGESTIVE) HEART FAILURE (2) Atrial fibrillation Code(s): I48.91 - UNSPECIFIED ATRIAL FIBRILLATION Qualifiers: Atrial fibrillation type: persistent Qualified Code(s): I48.1 - Persistent atrial fibrillation (3) CAD (coronary artery disease) Code(s): I25.10 - ATHSCL HEART DISEASE OF [place] CORONARY ARTERY W/O ANG PCTRS (4) ICD (implantable cardioverter-defibrillator) in place Code(s): Z95.810 - PRESENCE OF AUTOMATIC (IMPLANTABLE) CARDIAC DEFIBRILLATOR (5) Morbid obesity Code(s): E66.01 - MORBID (SEVERE) OBESITY DUE TO EXCESS CALORIES Assessment/Plan Acute on Chronic Systolic Heart Failure Atrial Fibrillation s/p PPM/ICD CAD HTN DM Hyperlipidemia r/o COPD r/o TSERING RUL pneumonia - IV lasix - monitor urine output, creatinine - daily weights - rate control - anticoagulation - O2 to keep SpO2 >90% - BiPAP as needed to assist in work of breathing - inhaled bronchodilators - will need outpt PFTs, PSG - ABX DR DOHERTY
--- NOTE | 2018-05-24 12:02 | PN ---
Progress Note (short form) - Note Progress Note: pt seen/ examined. chart reviewed sitting in chair feels better. decreased dyspnea complains of itching in the eyes Vital Signs Temp 98.4 F 05/24/18 09:17 Pulse 78 05/24/18 10:27 Resp 20 05/24/18 10:27 BP 104/60 05/24/18 10:27 Pulse Ox 96 05/24/18 09:00 Intake & Output 05/23/18 05/24/18 05/24/18 23:59 11:59 23:59 Intake Total 280 120 Output Total 1300 200 Balance -1020 -80 Weight 253 lb 6.4 oz Intake: IVPB 100 Oral 180 120 Output: Urine 1300 200 Void 1300 200 Other: Voiding Method Urinal Urinal Weight Measurement Method Standing Scale Active Medications Albuterol/Ipratropium (Duoneb -) 1 amp NEB Q6H PRN PRN Reason: SHORTNESS OF BREATH Last Admin: 05/24/18 08:44 Dose: 1 amp Alprazolam (Xanax -) 2 mg PO BID PRN PRN Reason: ANXIETY Last Admin: 05/23/18 21:36 Dose: 2 mg Atorvastatin Calcium (Lipitor -) 20 mg PO HS [facility] Last Admin: 05/23/18 21:36 Dose: 20 mg Carvedilol (Coreg -) 12.5 mg PO BID [facility] Last Admin: 05/24/18 10:24 Dose: 12.5 mg Furosemide (Lasix Injection -) 40 mg IVPUSH DAILY [facility] Last Admin: 05/24/18 10:24 Dose: 40 mg Levofloxacin (Levaquin 500 Mg Premixed Ivpb -) 500 mg in 100 mls @ 100 mls/hr IVPB DAILY [facility]; Protocol Last Admin: 05/24/18 10:24 Dose: 100 mls/hr Insulin Aspart (Novolog Vial Sliding Scale -) 1 vial SQ ACHS [facility]; Protocol Last Admin: 05/24/18 06:50 Dose: Not Given Insulin Detemir (Levemir Vial) 36 units SQ HS [facility] Last Admin: 05/23/18 21:40 Dose: 36 units Ipratropium [place] (Atrovent 0.02% Nebulizer -) 1 amp NEB Q15M PRN PRN Reason: WHEEZING Last Admin: 05/21/18 06:32 Dose: 1 amp Isosorbide Mononitrate (Imdur -) 30 mg PO DAILY [facility] Last Admin: 05/24/18 10:24 Dose: 30 mg Levalbuterol HCl (Xopenex) 0.63 mg IH Q15M PRN PRN Reason: ASTHMA Lisinopril (Prinivil) 2.5 mg PO DAILY [facility] Last Admin: 05/24/18 10:24 Dose: 2.5 mg Rivaroxaban (Xarelto -) 20 mg PO DAILY@1800 [facility] Last Admin: 05/23/18 17:34 Dose: 20 mg Tetrahydrozoline HCl (Visine -) 1 drop OD BID PRN PRN Reason: FOR ITCHING CBC, BMP 05/23/18 05:30 05/23/18 05:30 Microbiology 05/21/18 04:35 Blood Culture - Preliminary Blood - Peripheral Venous NO GROWTH OBTAINED AFTER 72 HOURS, INCUBATION TO CONTINUE FOR 2 DAYS. 05/21/18 04:35 Blood Culture - Preliminary Blood - Peripheral Venous NO GROWTH OBTAINED AFTER 72 HOURS, INCUBATION TO CONTINUE FOR 2 DAYS. physical exam S1 s2 Irregular Lungs --crackles at bases Abd- obese, NT Edema+ alert and awake PLAN IV lasix daily - monitor renal function meds reviewed BIPAP Pulmonary and cardiology eval noted CT chest ordered-noted--- right upper lobe infiltrate/ Left upper lobe--density - ?--- Need close monitoring Pulmonary and cardiology on case. will follow. Problem List - Problems (1) Afib Code(s): I48.91 - UNSPECIFIED ATRIAL FIBRILLATION (2) Acute on chronic systolic (congestive) heart failure Code(s): I50.23 - ACUTE ON CHRONIC SYSTOLIC (CONGESTIVE) HEART FAILURE (3) Diabetes Code(s): E11.9 - TYPE 2 DIABETES MELLITUS WITHOUT COMPLICATIONS (4) HTN (hypertension) Code(s): I10 - ESSENTIAL (PRIMARY) HYPERTENSION (5) Hyperlipidemia Code(s): E78.5 - HYPERLIPIDEMIA, UNSPECIFIED
[2018-05-24] MEDS: RIVAROXABAN 20 MG TABLET PO SCH (17:17)
[2018-05-24] MEDS: ATORVASTATIN CA 20 MG TABLET (FP) PO SCH (21:53)
[2018-05-24] MEDS: INSULIN (LEVEMIR) 100 UNITS/ML UNITS SQ SCH (21:53)
[2018-05-24] MEDS: ALPRAZolam 2 MG TABLET PO PRN (21:53)
[2018-05-25] MEDS: INSULIN SLIDING SCALE (NOVOLOG) 1 VIAL SQ SCH ×4 (06:19→21:44)
[2018-05-25 06:52] LABS: BASO % 0.6 % (0-2.0); EOS % 3.6 % (0-4.5); HEMATOCRIT 34.8 % (35.4-49); HEMOGLOBIN 11.4 GM/dL (11.7-16.9); LYMPH % 11.6 % (8-40); MCH 29.6 pg (25.7-33.7); MCHC 32.7 g/dl (32.0-35.9); MEAN CELL VOLUME 90.5 fl (80-96); MEAN PLT VOLUME 8.7 fl (7.5-11.1); NEUT % 71.2 % (42.8-82.8); PLATELET COUNT 127 K/MM3 (134-434); RBC 3.84 M/mm3 (4.00-5.60); RDW 16.4 % (11.9-15.9); WHITE BLOOD COUNT 4.1 K/mm3 (4.0-10.0)
[2018-05-25 07:32] LABS: ALBUMIN 2.4 g/dl (3.4-5.0); ALK PHOS 44 U/L (45-117); ANION GAP 7 MMOL/L (8-16); BILIRUBIN,TOTAL 0.7 mg/dL (0.2-1); BLOOD UREA NITROGEN 46 mg/dL (7-18); CALCIUM 8.4 mg/dL (8.5-10.1); CHLORIDE 98 mmol/L (98-107); CO2 33 mmol/L (21-32); CREATININE 1.4 mg/dL (0.55-1.3); GLUCOSE,RANDOM 103 mg/dL (74-106); POTASSIUM 3.5 mmol/L (3.5-5.1); SGOT/AST 32 U/L (15-37); SGPT/ALT 22 U/L (13-61); SODIUM 137 mmol/L (136-145); TOT PROT 6.8 g/dl (6.4-8.2)
[2018-05-25] MEDS ORDERED: PT OWN MED DRAWER 7, Y5N ONE (08:09)
[2018-05-25] MEDS: TETRAHYDROZOLINE HCL EYE DROPS OD PRN ×2 (09:17→21:49)
[2018-05-25] MEDS: ISOSORBIDE MONONITRATE 30 MG TAB.SR.24H (FP) PO SCH (09:18)
[2018-05-25] MEDS: CARVEDILOL 12.5 MG TABLET (FP) PO SCH ×2 (09:18→21:44)
[2018-05-25] MEDS: FUROSEMIDE 40 MG/4 ML INJECTABLE VIAL IVPUSH SCH (09:18)
[2018-05-25] MEDS: LISINOPRIL 5 MG TABLET (FP) PO SCH (09:18)
--- NOTE | 2018-05-25 11:44 | DS ---
Physical Examination Vital Signs: Vital Signs Temperature 97.8 F 05/25/18 07:35 Pulse Rate 94 H 05/25/18 07:35 Respiratory Rate 18 05/25/18 07:35 Blood Pressure 107/59 L 05/25/18 07:35 O2 Sat by Pulse Oximetry (%) 95 05/25/18 07:34 Constitutional: Yes: No Distress, Calm Cardiovascular: Yes: Pulse Irregular Respiratory: Yes: Diminished Gastrointestinal: Yes: Normal Bowel Sounds, Soft, Abdomen, Obese. No: Tenderness Edema: No Labs: CBC, BMP 05/25/18 05:30 05/25/18 05:30 Discharge Summary Reason For Visit: ACUTE CONGESTIVE HEART FAILURE Current Active Problems Acute CHF (Acute) Acute on chronic systolic (congestive) heart failure (Acute) Afib (Acute) Anxiety and depression (Acute) Diabetes (Acute) Dyspnea (Acute) HTN (hypertension) (Acute) Hyperlipidemia (Acute) Obesity (Acute) Pancytopenia (Acute) Sedentary lifestyle (Acute) Hospital Course: Admitted for shortness of breath, weakness, chest pain Seen by Cardiology, pulmonary Started on IV Lasix, BIPAP CT chest shows infiltrate-- pt on antibiotics clinically better deconditioned, needs rehab stable for dc to STR Condition: Fair - Instructions Disposition: [facility] - Home Medications Comprehensive Discharge Medication List: Ambulatory Orders Alprazolam [Xanax] 2 mg PO BID PRN 09/12/12 Aspirin Coated [Ecotrin -] 81 mg PO DAILY 09/12/12 Atorvastatin Ca [Lipitor] 20 mg PO HS 09/12/12 Fenofibrate 134 mg PO DAILY 08/14/13 metFORMIN HCL [Glucophage -] 500 mg PO BID 08/14/13 Clopidogrel Bisulfate [Plavix -] 75 mg PO DAILY 10/06/15 Insulin (Levemir) [Levemir Vial] 36 unit SQ HS 10/06/15 Isosorbide Mononitrate [Imdur -] 30 mg PO DAILY 10/06/15 Oxycodone HCl/Acetaminophen [Percocet 10-325 mg Tablet] 1 each PO BID PRN Rivaroxaban [Xarelto -] 20 mg PO HS 10/06/15 Albuterol 2.5/Ipratropium 0.5 [Duoneb -] 1 amp NEB Q6H PRN #30 amp 05/25/18 Carvedilol [Coreg -] 12.5 mg PO BID #30 tablet 05/25/18 Levofloxacin [Levaquin] 500 mg PO DAILY #5 tablet 05/25/18 Lisinopril [Prinivil] 2.5 mg PO DAILY #30 tablet 05/25/18 Tetrahydrozoline HCl [Visine -] 1 drop OD BID PRN #20 drops 05/25/18
--- NOTE | 2018-05-25 15:20 | PN ---
Progress Note (short form) - Note Progress Note: PULMONARY +cough with thick sputum. No fevers or chills. Vital Signs Period Temp Pulse Resp BP Sys/Ray Pulse Ox Last 24 Hr 97.8 F-99 F 65-94 18-20 90-114/54-64 95-95 Gen: NAD at rest Heart: RRR Lung: decreased breath sounds at the bases Abd: soft, nontender Ext: trace edema CBC, BMP 05/25/18 05:30 05/25/18 05:30 Active Medications Albuterol/Ipratropium (Duoneb -) 1 amp NEB Q6H PRN PRN Reason: SHORTNESS OF BREATH Last Admin: 05/24/18 08:44 Dose: 1 amp Atorvastatin Calcium (Lipitor -) 20 mg PO [facility] Last Admin: 05/24/18 21:53 Dose: 20 mg Carvedilol (Coreg -) 12.5 mg PO BID [facility] Last Admin: 05/25/18 09:18 Dose: 12.5 mg Insulin Aspart (Novolog Vial Sliding Scale -) 1 vial SQ [facility]; Protocol Last Admin: 05/25/18 11:37 Dose: Not Given Insulin Detemir (Levemir Vial) 36 units SQ [facility] Last Admin: 05/24/18 21:53 Dose: 36 units Ipratropium [place] (Atrovent 0.02% Nebulizer -) 1 amp NEB Q15M PRN PRN Reason: WHEEZING Last Admin: 05/21/18 06:32 Dose: 1 amp Isosorbide Mononitrate (Imdur -) 30 mg PO DAILY [facility] Last Admin: 05/25/18 09:18 Dose: 30 mg Levalbuterol HCl (Xopenex) 0.63 mg IH Q15M PRN PRN Reason: ASTHMA Levofloxacin (Levaquin -) 500 mg PO DAILY [facility] Lisinopril (Prinivil) 2.5 mg PO DAILY [facility] Last Admin: 05/25/18 09:18 Dose: 2.5 mg Rivaroxaban (Xarelto -) 20 mg PO DAILY@1800 [facility] Last Admin: 05/24/18 17:17 Dose: 20 mg Tetrahydrozoline HCl (Visine -) 1 drop OD BID PRN PRN Reason: FOR ITCHING Last Admin: 05/25/18 09:17 Dose: 1 drop A/P Acute on Chronic Systolic Heart Failure Pneumonia Atrial Fibrillation s/p PPM/ICD CAD HTN DM Hyperlipidemia r/o COPD r/o TSERING - monitor urine output, creatinine - daily weights - rate control - continue anticoagulation - continue - O2 to keep SpO2 >90% - BiPAP as needed to assist in work of breathing - inhaled bronchodilators - will need outpt PFTs, PSG Problem List - Problems (1) Acute on chronic systolic (congestive) heart failure Code(s): I50.23 - ACUTE ON CHRONIC SYSTOLIC (CONGESTIVE) HEART FAILURE (2) Atrial fibrillation Code(s): I48.91 - UNSPECIFIED ATRIAL FIBRILLATION Qualifiers: Atrial fibrillation type: persistent Qualified Code(s): I48.1 - Persistent atrial fibrillation (3) CAD (coronary artery disease) Code(s): I25.10 - ATHSCL HEART DISEASE OF [place] CORONARY ARTERY W/O ANG PCTRS (4) ICD (implantable cardioverter-defibrillator) in place Code(s): Z95.810 - PRESENCE OF AUTOMATIC (IMPLANTABLE) CARDIAC DEFIBRILLATOR (5) Morbid obesity Code(s): E66.01 - MORBID (SEVERE) OBESITY DUE TO EXCESS CALORIES
[2018-05-25] MEDS: RIVAROXABAN 20 MG TABLET PO SCH (17:09)
[2018-05-25] MEDS: ALBUTEROL SO4 2.5/IPRATROPIUM 0.5 INH SOL 3 ML VIAL.NEB. NEB PRN (21:39)
[2018-05-25] MEDS: ATORVASTATIN CA 20 MG TABLET (FP) PO SCH (21:44)
[2018-05-25] MEDS: INSULIN (LEVEMIR) 100 UNITS/ML UNITS SQ SCH (21:44)
--- NOTE | 2018-05-25 23:06 | PN ---
Progress Note, Physician Chief Complaint: Pt A&Ox3; weak; walked slowly in room with therapist. 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 Denies chest pain or leg swelling. Former long-term cigarettes (quit in ?2016). Pt believes he was shocked at least once by the defibrillator; this was not noted in ICD interrogation while in ER. - Current Medication List Current Medications: Active Medications Albuterol/Ipratropium (Duoneb -) 1 amp NEB Q6H PRN PRN Reason: SHORTNESS OF BREATH Last Admin: 05/25/18 21:39 Dose: 1 amp Atorvastatin Calcium (Lipitor -) 20 mg PO HS [facility] Last Admin: 05/25/18 21:44 Dose: 20 mg Carvedilol (Coreg -) 12.5 mg PO BID [facility] Last Admin: 05/25/18 21:44 Dose: 12.5 mg Insulin Aspart (Novolog Vial Sliding Scale -) 1 vial SQ [facility]; Protocol Last Admin: 05/25/18 21:44 Dose: Not Given Insulin Detemir (Levemir Vial) 36 units SQ [facility] Last Admin: 05/25/18 21:44 Dose: 36 units Ipratropium [place] (Atrovent 0.02% Nebulizer -) 1 amp NEB Q15M PRN PRN Reason: WHEEZING Last Admin: 05/21/18 06:32 Dose: 1 amp Isosorbide Mononitrate (Imdur -) 30 mg PO DAILY [facility] Last Admin: 05/25/18 09:18 Dose: 30 mg Levalbuterol HCl (Xopenex) 0.63 mg IH Q15M PRN PRN Reason: ASTHMA Levofloxacin (Levaquin -) 500 mg PO DAILY [facility] Lisinopril (Prinivil) 2.5 mg PO DAILY [facility] Last Admin: 05/25/18 09:18 Dose: 2.5 mg Rivaroxaban (Xarelto -) 20 mg PO DAILY@1800 [facility] Last Admin: 05/25/18 17:09 Dose: 20 mg Tetrahydrozoline HCl (Visine -) 1 drop OD BID PRN PRN Reason: FOR ITCHING Last Admin: 05/25/18 21:49 Dose: 1 drop - Objective Vital Signs: Vital Signs Temperature 98.2 F 05/25/18 20:12 Pulse Rate 94 H 05/25/18 20:12 Respiratory Rate 18 05/25/18 20:12 Blood Pressure 112/61 05/25/18 20:12 O2 Sat by Pulse Oximetry (%) 95 05/25/18 07:34 Constitutional: Yes: Calm, Obese Eyes: Yes: WNL HENT: Yes: WNL Neck: Yes: WNL Cardiovascular: Yes: Pulse Irregular, Murmur Labs: CBC, BMP 05/25/18 05:30 05/25/18 05:30 INR, PTT INR 1.79 (0.83-1.09) H 05/21/18 04:50 Problem List - Problems (1) Pancytopenia Assessment/Plan: f/u with hematology On DOAC for anticoagulation (AF); antiplatelets discontinued. Code(s): D61.818 - OTHER PANCYTOPENIA (2) Diabetes Assessment/Plan: lisinopril started (systolic CHF; DM--renal protection). Code(s): E11.9 - TYPE 2 DIABETES MELLITUS WITHOUT COMPLICATIONS (3) HTN (hypertension) Assessment/Plan: Restarted carvedilol and lisinopril. Code(s): I10 - ESSENTIAL (PRIMARY) HYPERTENSION (4) Anxiety and depression Code(s): F41.9 - ANXIETY DISORDER, UNSPECIFIED; F32.9 - MAJOR DEPRESSIVE DISORDER, SINGLE EPISODE, UNSPECIFIED (5) Acute on chronic systolic and diastolic heart failure, NYHA class 3 Assessment/Plan: restart carvedilol (on 25 mg bid at home), lisinopril restarted. Digoxin discontinued. On furosemide. BUN/Cr, electrolytes, Is and Os, daily weight. Code(s): I50.43 - ACUTE ON CHRONIC COMBINED SYSTOLIC AND DIASTOLIC HRT FAIL (6) NSVT (nonsustained ventricular tachycardia) Assessment/Plan: restarted carvedilol and lisinopril. Maintain electrolytes WNL. Code(s): I47.2 - VENTRICULAR TACHYCARDIA (7) Sepsis Code(s): A41.9 - SEPSIS, UNSPECIFIED ORGANISM (8) Hyperlipidemia Code(s): E78.5 - HYPERLIPIDEMIA, UNSPECIFIED (9) Obesity Assessment/Plan: diet modification; portion control; increase exercise. Code(s): E66.9 - OBESITY, UNSPECIFIED (10) Dyspnea Assessment/Plan: Acute/chronic systolic and diastolic CHF. PNA bronchodilators, steroids per plastic sheets supervisor. Restarted carvedilol and lisinopril; on furosemide (systolic/diastolic CHF). Code(s): R06.00 - DYSPNEA, UNSPECIFIED (11) Sedentary lifestyle Assessment/Plan: Pt has been sedentary for years, with consequent weight gain, weakness, exertional fatigue. ?Depression. Physical therapy, motivation to start regular exercise will be crucial; he is now receiving therapy, and says he will try to be more active. Code(s): Z91.89 - OTH PERSONAL RISK FACTORS, NOT ELSEWHERE CLASSIFIED (12) Degenerative joint disease Code(s): M19.90 - UNSPECIFIED OSTEOARTHRITIS, UNSPECIFIED SITE
[2018-05-26] MEDS: ALPRAZolam 2 MG TABLET PO SCH ×2 (00:15→09:44)
[2018-05-26] MEDS: INSULIN SLIDING SCALE (NOVOLOG) 1 VIAL SQ SCH ×2 (06:21→11:21)
[2018-05-26] MEDS ORDERED: INSULIN (NOVOLOG) ASPART 100 UNITS/ML 10ML VIAL ONE (06:43)
[2018-05-26] MEDS: CARVEDILOL 12.5 MG TABLET (FP) PO SCH (09:44)
[2018-05-26] MEDS: ISOSORBIDE MONONITRATE 30 MG TAB.SR.24H (FP) PO SCH (09:44)
[2018-05-26] MEDS: LISINOPRIL 5 MG TABLET (FP) PO SCH (09:44)
--- NOTE | 2018-05-26 11:12 | PN ---
Problem List - Problems (1) Afib Code(s): I48.91 - UNSPECIFIED ATRIAL FIBRILLATION (2) Acute on chronic systolic (congestive) heart failure Code(s): I50.23 - ACUTE ON CHRONIC SYSTOLIC (CONGESTIVE) HEART FAILURE (3) Diabetes Code(s): E11.9 - TYPE 2 DIABETES MELLITUS WITHOUT COMPLICATIONS (4) HTN (hypertension) Code(s): I10 - ESSENTIAL (PRIMARY) HYPERTENSION (5) Hyperlipidemia Code(s): E78.5 - HYPERLIPIDEMIA, UNSPECIFIED
--- NOTE | 2018-05-26 12:15 | PN ---
Progress Note (short form) - Note Progress Note: PULMONARY Coughing less. No fevers or chills. Vital Signs Period Temp Pulse Resp BP Sys/Ray Pulse Ox Last 24 Hr 98 F-98.5 F 83-101 18-20 98-112/54-61 95-95 Gen: NAD at rest Heart: RRR Lung: decreased breath sounds at the bases Abd: soft, nontender Ext: trace edema CBC, BMP 05/25/18 05:30 05/25/18 05:30 Active Medications Albuterol/Ipratropium (Duoneb -) 1 amp NEB Q6H PRN PRN Reason: SHORTNESS OF BREATH Last Admin: 05/25/18 21:39 Dose: 1 amp Alprazolam (Xanax -) 2 mg PO BID [facility] Last Admin: 05/26/18 09:44 Dose: 2 mg Atorvastatin Calcium (Lipitor -) 20 mg PO HS [facility] Last Admin: 05/25/18 21:44 Dose: 20 mg Carvedilol (Coreg -) 12.5 mg PO BID [facility] Last Admin: 05/26/18 09:44 Dose: 12.5 mg Insulin Aspart (Novolog Vial Sliding Scale -) 1 vial SQ [facility]; Protocol Last Admin: 05/26/18 11:21 Dose: Not Given Insulin Detemir (Levemir Vial) 36 units SQ [facility] Last Admin: 05/25/18 21:44 Dose: 36 units Ipratropium [place] (Atrovent 0.02% Nebulizer -) 1 amp NEB Q15M PRN PRN Reason: WHEEZING Last Admin: 05/21/18 06:32 Dose: 1 amp Isosorbide Mononitrate (Imdur -) 30 mg PO DAILY [facility] Last Admin: 05/26/18 09:44 Dose: 30 mg Levalbuterol HCl (Xopenex) 0.63 mg IH Q15M PRN PRN Reason: ASTHMA Levofloxacin (Levaquin -) 500 mg PO DAILY [facility] Last Admin: 05/26/18 09:44 Dose: 500 mg Lisinopril (Prinivil) 2.5 mg PO DAILY [facility] Last Admin: 05/26/18 09:44 Dose: 2.5 mg Rivaroxaban (Xarelto -) 20 mg PO DAILY@1800 [facility] Last Admin: 05/25/18 17:09 Dose: 20 mg Tetrahydrozoline HCl (Visine -) 1 drop OD BID PRN PRN Reason: FOR ITCHING Last Admin: 05/25/18 21:49 Dose: 1 drop A/P Acute on Chronic Systolic Heart Failure Pneumonia Atrial Fibrillation s/p PPM/ICD CAD HTN DM Hyperlipidemia r/o COPD r/o TSERING - monitor urine output, creatinine - daily weights - rate control - continue anticoagulation - continue antibiotics - O2 to keep SpO2 >90% - BiPAP as needed to assist in work of breathing - inhaled bronchodilators - will need outpt PFTs, PSG Problem List - Problems (1) Acute on chronic systolic (congestive) heart failure Code(s): I50.23 - ACUTE ON CHRONIC SYSTOLIC (CONGESTIVE) HEART FAILURE (2) Atrial fibrillation Code(s): I48.91 - UNSPECIFIED ATRIAL FIBRILLATION Qualifiers: Atrial fibrillation type: persistent Qualified Code(s): I48.1 - Persistent atrial fibrillation (3) CAD (coronary artery disease) Code(s): I25.10 - ATHSCL HEART DISEASE OF [place] CORONARY ARTERY W/O ANG PCTRS (4) ICD (implantable cardioverter-defibrillator) in place Code(s): Z95.810 - PRESENCE OF AUTOMATIC (IMPLANTABLE) CARDIAC DEFIBRILLATOR (5) Morbid obesity Code(s): E66.01 - MORBID (SEVERE) OBESITY DUE TO EXCESS CALORIES
[2018-05-26 15:35] VITALS: BP 89/56; PULSE 83; TEMP 97.7
== END 2018-05-26 16:07 | DRG 291 ==
LOC: JER 03:38 → JERBED 06:02 → J4W 05-22 03:19
PROVIDERS: ADMIT Internal Medicine; ATTEND Internal Medicine
DX: I11.0 Hypertensive heart disease with heart failure (principal); J18.9 Pneumonia, unspecified organism; D61.818 Other pancytopenia; I47.1 Supraventricular tachycardia; I50.43 Acute on chronic combined systolic (congestive) and diastolic (congestive) heart failure; Z79.01 Long term (current) use of anticoagulants; I25.2 Old myocardial infarction; Z95.0 Presence of cardiac pacemaker; I48.91 Unspecified atrial fibrillation; E11.42 Type 2 diabetes mellitus with diabetic polyneuropathy; Z79.4 Long term (current) use of insulin; D72.819 Decreased white blood cell count, unspecified; E11.65 Type 2 diabetes mellitus with hyperglycemia; F41.9 Anxiety disorder, unspecified; E78.5 Hyperlipidemia, unspecified; I25.10 Atherosclerotic heart disease of native coronary artery without angina pectoris; E66.01 Morbid (severe) obesity due to excess calories; Z68.35 Body mass index [BMI] 35.0-35.9, adult
CPT/HCPCS: 36415; 36600; 71046-TC-FY; 71250-TC; 80048; 80053; 82375; 82550; 82803; 82962; 83050; 83605; 83735; 83880; 84484; 85025; 85610; 87040; 87804; 93005; 93010; 93306-TC; 94640; 94660; 97116-GP; 97162-GP; 99284-25

== ENCOUNTER 2020-04-25 14:00 | Emergency (ER) | payer OTHER ==
[2020-04-25 14:18] VITALS: TEMP 101.5; BMI 29.8
[2020-04-25] MEDS ORDERED: SODIUM CHLORIDE IV ONE (14:20)
[2020-04-25] MEDS ORDERED: dilTIAZem HCL 125 MG/25 ML - 25 ML VIAL ONE (14:32)
[2020-04-25] MEDS ORDERED: PHENYLEPHRINE HCL 10 MG/1 ML SINGLE DOSE VIAL ONE (14:32)
[2020-04-25 14:49] LABS: BASO % 1.4 % (0-2.0); EOS % 0.5 % (0-4.5); HEMATOCRIT 45.6 % (35.4-49); HEMOGLOBIN 14.6 GM/dL (11.7-16.9); LYMPH % 12.9 % (8-40); MCH 26.6 pg (25.7-33.7); MCHC 31.9 g/dl (32.0-35.9); MEAN CELL VOLUME 83.3 fl (80-96); MEAN PLT VOLUME 10.5 fl (7.5-11.1); MONO % 3.5 % (3.8-10.2); NEUT % 81.7 % (42.8-82.8); PLATELET COUNT 199 K/MM3 (134-434); RBC 5.47 M/mm3 (4.00-5.60); RDW 21.4 % (11.9-15.9); WHITE BLOOD COUNT 5.7 K/mm3 (4.0-10.0)
[2020-04-25 14:56] LABS: INR 2.75 (0.83-1.09); PROTHROMBIN TIME (PATIENT) 32.3 SEC (9.7-13.0)
[2020-04-25 14:59] LABS: ACTIVATED PTT 61.9 SECONDS (25.2-36.5); POTASSIUM 5.6 mmol/L (3.5-5.1)
[2020-04-25 15:01] LABS: CALCIUM 8.7 mg/dL (8.5-10.1)
[2020-04-25 15:02] LABS: ALBUMIN 2.4 g/dl (3.4-5.0); BLOOD UREA NITROGEN 54.1 mg/dL (7-18)
[2020-04-25 15:05] LABS: CREATININE 2.9 mg/dL (0.55-1.3)
[2020-04-25 15:06] LABS: BILIRUBIN,TOTAL 1.3 mg/dL (0.2-1); TOT PROT 7.3 g/dl (6.4-8.2)
[2020-04-25] MEDS ORDERED: DIGOXIN 0.5 MG/2 ML AMPUL IVPUSH ONE (15:09)
[2020-04-25] MEDS ORDERED: DIGOXIN 0.5 MG/2 ML AMPUL ONE (15:11)
[2020-04-25 15:13] LABS: VENOUS BASE EXCESS -10.4 mmol/L (-2-2); VENOUS O2 SATURATION 90.7 % (70-80)
[2020-04-25 15:15] LABS: VENOUS PCO2 76.7 mmHg (38-52); VENOUS PH 7.064 (7.310-7.410)
[2020-04-25] MEDS ORDERED: ACETAMINOPHEN 1000 MG/100 ML VIAL (NON FORMULARY) IVPB ONE (15:36)
[2020-04-25] MEDS ORDERED: dilTIAZem HCL 50 MG/10 ML - 10 ML VIAL IVPUSH ONE (15:36)
[2020-04-25] MEDS ORDERED: PHENYLEPHRINE HCL 10 MG/1 ML SINGLE DOSE VIAL IVPB ONE (15:38)
[2020-04-25] MEDS ORDERED: AZTREONAM 2 GM in DEXTROSE 5%-WATER 100 ML IVPB ONE (15:42)
[2020-04-25] MEDS ORDERED: AZITHROMYCIN IVPB 500 MG in DEXTROSE 5%-WATER - 250 ML IVPB ONE (15:42)
[2020-04-25] MEDS ORDERED: VANCOMYCIN 1,000 MG in DEXTROSE 5%-WATER - 250 ML IVPB ONE (15:42)
[2020-04-25 15:44] LABS: EPI CELLS 8 /uL (0-25.1); HYALINE CASTS 2 /uL (0-3.1); URINE APPEARANCE CLOUDY; URINE BACTERIA 790 /uL (0-1359); URINE BILIRUBIN NEGATIVE (NEGATIVE); URINE COLOR DK YELLOW; URINE GLUCOSE (UA) NEGATIVE (NEGATIVE); URINE KETONE NEGATIVE (NEGATIVE); URINE LEUK ESTERASE 2+ (NEGATIVE); URINE NITRITE NEGATIVE (NEGATIVE); URINE PROTEIN 2+ (NEGATIVE); URINE RBC 13 /uL (0-23.9); URINE WBC 123 /uL (0-25.8)
[2020-04-25] MEDS ORDERED: AZTREONAM 1 GM VIAL (RESTRICTED TO ID) ONE (15:50)
[2020-04-25] MEDS ORDERED: VANCOMYCIN 1 GRAM (PRE-DOCKED) 1,000 MG/250 ML BAG IVPB ONE (15:51)
[2020-04-25] MEDS ORDERED: AZITHROMYCIN IVPB 500 MG/250 ML BAG IVPB ONE (15:51)
[2020-04-25 16:19] VITALS: BP 45/25
[2020-04-25 16:51] LABS: ANISOCYTOSIS 2+; MACROCYTOSIS 1+; PLATELET ESTIMATE NORMAL
[2020-04-25 18:08] VITALS: PULSE 110
== END 2020-04-25 18:00 | disposition expired ==
LOC: JER 14:00
PROC: 3E0333Z Introduction of Anti-inflammatory into Peripheral Vein, Percutaneous Approach (ICD-10-PCS; principal; 2020-04-25)
PROC: 3E03329 Introduction of Other Anti-infective into Peripheral Vein, Percutaneous Approach (ICD-10-PCS; 2020-04-25)
PROC: 3E03329 Introduction of Other Anti-infective into Peripheral Vein, Percutaneous Approach (ICD-10-PCS; 2020-04-25)
PROC: 3E033GC Introduction of Other Therapeutic Substance into Peripheral Vein, Percutaneous Approach (ICD-10-PCS; 2020-04-25)
PROC: 3E033GC Introduction of Other Therapeutic Substance into Peripheral Vein, Percutaneous Approach (ICD-10-PCS; 2020-04-25)
PROC: 3E033GC Introduction of Other Therapeutic Substance into Peripheral Vein, Percutaneous Approach (ICD-10-PCS; 2020-04-25)
PROC: 3E03329 Introduction of Other Anti-infective into Peripheral Vein, Percutaneous Approach (ICD-10-PCS; 2020-04-25)
PROC: 3E0337Z Introduction of Electrolytic and Water Balance Substance into Peripheral Vein, Percutaneous Approach (ICD-10-PCS; 2020-04-25)
DX: I46.9 Cardiac arrest, cause unspecified (principal); R65.21 Severe sepsis with septic shock; J18.9 Pneumonia, unspecified organism
CPT/HCPCS: 36415; 71045-TC-FY; 80053; 81003; 82248; 82550; 82728; 82803; 83605; 83615; 84484; 85025; 85610; 85730; 86140; 87040; 87086; 87186; 93005; 93010; 99291; C9803; J0131; U0003